=== PATIENT | female | born 1930 | race Caucasian/White ===

== ENCOUNTER 2019-03-27 15:24 | Inpatient (IN) | payer MEDICARE ==
[2019-03-27 16:52] LABS: Basophils # (A) 0.1 k/uL (0-0.2); Basophils % (A) 1 %; Eosinophils # (A) 0.2 k/uL (0-0.7); Eosinophils % (A) 2 %; HGB 15.1 gm/dL (11.4-16.0); Lymphocytes # (A) 1.5 k/uL (1.0-4.8); Lymphocytes % (A) 18 %; MCH 29.5 pg (25.0-35.0); MCHC 33.5 g/dL (31.0-37.0); Mean Platelet Volume 7.9; Monocytes # (A) 0.7 k/uL (0-1.0); Monocytes % (A) 9 %; Neutrophils # (A) 5.4 k/uL (1.3-7.7); Neutrophils % (A) 67 %; Platelet Count 191 k/uL (150-450); RBC 5.11 m/uL (3.80-5.40)
--- NOTE | 2019-03-27 16:56 | ED ---
General Adult HPI - General Chief complaint: Neuro Symptoms/Deficit Stated complaint: dizziness, speech difficulty Time Seen by Provider: 03/27/19 15:59 Source: patient Mode of arrival: ambulatory Limitations: no limitations - History of Present Illness Initial comments: Dictation was produced using [employer] dictation software. please excuse any grammatical, word or spelling errors. Chief Complaint: 88 yo female told by her field crop farmworker come to the emergency department for stroke likd symptoms. History of Present Illness: Elsie is an 88-year-old female. She has past medical history atrial fibrillation, dyslipidemia hypertension. She was at her field crop farmworker office today for ultrasound of the carotids. At approximately noon today, she began having symptoms of bilateral lower extremity numbness and difficulty using the right hand. Patient also states that she had difficulty with her speech. She is accompanied today with her son. She notified her field crop farmworker of her symptoms and was told to come to the emergency department. Dr. Vo discussed patient case with Dr. Barrera prior to the patient being transferred to the emergency department that she will need a stroke workup. Patient evaluated bedside. She does not have any symptoms currently. She states her symptoms lasted for approximately 3 hours and resolved. Patient has a history of stroke. She takes Coumadin for atrial fibrillation. She is told t hat ultrasound of her carotids were normal. She has no other complaints at this time. She feels at baseline currently. The ROS documented in this emergency department record has been reviewed and confirmed by me. Those systems with pertinent positive or negative responses have been documented in the HPI. All other systems are other negative and/or noncontributory. PHYSICAL EXAM: General Impression: Alert and oriented x3, not in acute distress HEENT: Normocephalic atraumatic, extra-ocular movements intact, pupils equal and reactive to light bilaterally, mucous membranes moist. Cardiovascular: Heart regular rate and rhythm, S1&S2 audible, no murmurs, rubs or gallops Chest: Lungs clear to auscultation bilaterally, no rhonchi, no wheeze, no rales Abdomen: Bowel sounds present, abdomen soft, non-tender, non-distended, no organomegaly Musculoskeletal: Pulses present and equal in all extremities, no peripheral edema Motor: no focal deficits noted Neurological: CN II-XII grossly intact, no focal motor or sensory deficits noted Skin: Intact with no visualized rashes Psych: Normal affect and mood ED course: 88-year-old female with transient strokelike symptoms. Symptoms lasted from approximately noon p.m. today to approximately 3:30 PM. Signs upon arrival are within acceptable limits. She reports that her symptoms were bilateral lower extremity paresthesias, dizziness and difficulty using the right hand. She is currently asymptomatic. NIH was performed upon arrival with a score of 0. CT brain was obtained showing no acute processes. Chest x-ray is negative. Laboratory evaluation obtained. Patient's INR slightly subtherapeutic at 1.8. Metabolic panel is negative. Presentation concerning for change in ischemic attack. Patient given an aspirin. Patient be admitted to Dr. Palma's group. Attempt was made to page Dr. Palma without any return call. Patient unde rstandable agreeable to plan. Neurology on consult. EKG interpretation: Ventricular rate 60, atrial paced rhythm,. Interval 200, care is 80, QTc 424. No OH prolongation, no QTC prolongation, no ST or T-wave changes noted. EKG compared to 06/15/2016 showing no changes. Overall, this EKG is unremarkable - Related Data Home Medications Medication Instructions Recorded Confirmed ALPRAZolam [Xanax] 0.25 mg PO BID PRN 03/18/15 03/27/19 Atorvastatin Calcium 10 mg PO HS 03/18/15 03/27/19 Acetaminophen [Tylenol Arthritis] 650 mg PO DAILY 03/27/19 03/27/19 Calcium Carbonate [Tums] 1,000 mg PO DAILY 03/27/19 03/27/19 Levothyroxine Sodium [Synthroid] 88 mcg PO DAILY 03/27/19 03/27/19 Loratadine [Claritin] 10 mg PO DAILY 03/27/19 03/27/19 Metoprolol Tartrate [Lopressor] 50 mg PO TID 03/27/19 03/27/19 Warfarin [Coumadin] 5 mg PO SUMOTUWETHSA 03/27/19 03/27/19 Warfarin [Coumadin] 7.5 mg PO FR 03/27/19 03/27/19 buPROPion XL [Wellbutrin Xl] 150 mg PO DAILY 03/27/19 03/27/19 Allergies Allergy/AdvReac Type Severity Reaction Status Date / Time kiwi Allergy "swollen Verified 03/27/19 16:28 lips and nausea" latex Allergy "avoids Verified 03/27/19 16:28 latex due to kiwi alg" Review of Systems ROS Statement: Those systems with pertinent positive or pertinent negative responses have been documented in the HPI. ROS Other: All systems not noted in ROS Statement are negative. Past Medical History Past Medical History: Atrial Fibrillation, Hyperlipidemia, Hypertension, Thyroid Disorder History of Any Multi-Drug Resistant Organisms: None Reported Past Surgical History: Pacemaker Additional Past Surgical History / Comment(s): 03-29-15 total rt hip , ANUPAM KNEE REPLACEMENT,ANUPAM CATARACT Past Anesthesia/Blood Transfusion Reactions: No Reported Reaction Type of Cardiac Device: Permanent Pacemaker Device Placement Date:: January 07, 2016 Past Psychological History: Anxiety, Depression Smoking Status: Former smoker Past Alcohol Use History: Occasional Past Drug Use History: None Reported - Past Family History Mother Family Medical History: No Reported History Additional Family Medical History / Comment(s): Mother at age 101. Brother(s) Additional Family Medical History / Comment(s): Liver CA Father Family Medical History: Osteoarthritis (OA) General Exam Limitations: no limitations Course Vital Signs 03/27/19 03/27/19 03/27/19 15:40 16:00 17:01 Temperature 97.4 F L Pulse Rate 60 89 70 Respiratory 18 18 18 Rate Blood Pressure 165/98 160/89 145/87 O2 Sat by Pulse 94 L 96 95 Oximetry 03/27/19 19:28 Temperature 98.4 F Pulse Rate 60 Respiratory 20 Rate Blood Pressure 169/96 O2 Sat by Pulse 94 L Oximetry Medical Decision Making - Lab Data Result diagrams: 03/27/19 16:02 03/27/19 16:02 Lab Results 03/27/19 03/27/19 03/27/19 Range/Units 16:02 16:02 16:02 WBC 8.0 (3.8-10.6) k/uL RBC 5.11 (3.80-5.40) m/uL Hgb 15.1 (11.4-16.0) gm/dL Hct 45.0 (34.0-46.0) % MCV 88.0 (80.0-100.0) fL MCH 29.5 (25.0-35.0) pg MCHC 33.5 (31.0-37.0) g/dL RDW 14.0 (11.5-15.5) % Plt Count 191 (150-450) k/uL Neutrophils % 67 % Lymphocytes % 18 % Monocytes % 9 % Eosinophils % 2 % Basophils % 1 % Neutrophils # 5.4 (1.3-7.7) k/uL Lymphocytes # 1.5 (1.0-4.8) k/uL Monocytes # 0.7 (0-1.0) k/uL Eosinophils # 0.2 (0-0.7) k/uL Basophils # 0.1 (0-0.2) k/uL PT 17.5 H (9.0-12.0) sec INR 1.8 H (<1.2) APTT 32.0 H (22.0-30.0) sec Sodium 138 (137-145) mmol/L Potassium 4.3 (3.5-5.1) mmol/L Chloride 102 (98-107) mmol/L Carbon Dioxide 26 (22-30) mmol/L Anion Gap 10 mmol/L BUN 17 (7-17) mg/dL Creatinine 0.82 (0.52-1.04) mg/dL Est GFR (CKD-EPI)AfAm 73 (>60 ml/min/1.73 sqM) Est GFR (CKD-EPI)NonAf 64 (>60 ml/min/1.73 sqM) Glucose 90 (74-99) mg/dL Calcium 9.8 (8.4-10.2) mg/dL Magnesium 2.0 (1.6-2.3) mg/dL Total Bilirubin 0.7 (0.2-1.3) mg/dL AST 39 H (14-36) U/L ALT 31 (9-52) U/L Alkaline Phosphatase 78 (38-126) U/L Troponin I (0.000-0.034) ng/mL Total Protein 8.0 (6.3-8.2) g/dL Albumin 4.7 (3.5-5.0) g/dL 03/27/19 Range/Units 16:02 WBC (3.8-10.6) k/uL RBC (3.80-5.40) m/uL Hgb (11.4-16.0) gm/dL Hct (34.0-46.0) % MCV (80.0-100.0) fL MCH (25.0-35.0) pg MCHC (31.0-37.0) g/dL RDW (11.5-15.5) % Plt Count (150-450) k/uL Neutrophils % % Lymphocytes % % Monocytes % % Eosinophils % % Basophils % % Neutrophils # (1.3-7.7) k/uL Lymphocytes # (1.0-4.8) k/uL Monocytes # (0-1.0) k/uL Eosinophils # (0-0.7) k/uL Basophils # (0-0.2) k/uL PT (9.0-12.0) sec INR (<1.2) APTT (22.0-30.0) sec Sodium (137-145) mmol/L Potassium (3.5-5.1) mmol/L Chloride (98-107) mmol/L Carbon Dioxide (22-30) mmol/L Anion Gap mmol/L BUN (7-17) mg/dL Creatinine (0.52-1.04) mg/dL Est GFR (CKD-EPI)AfAm (>60 ml/min/1.73 sqM) Est GFR (CKD-EPI)NonAf (>60 ml/min/1.73 sqM) Glucose (74-99) mg/dL Calcium (8.4-10.2) mg/dL Magnesium (1.6-2.3) mg/dL Total Bilirubin (0.2-1.3) mg/dL AST (14-36) U/L ALT (9-52) U/L Alkaline Phosphatase (38-126) U/L Troponin I <0.012 (0.000-0.034) ng/mL Total Protein (6.3-8.2) g/dL Albumin (3.5-5.0) g/dL Disposition Clinical Impression: TIA (transient ischemic attack) Disposition: ADMITTED IP TO THIS HOSP Condition: Fair Referrals: Raul Avendaño MD [Primary Care Provider] - 1-2 days Decision Time: 20:43
[2019-03-27 16:57] LABS: INR 1.8 (<1.2); Prothrombin Time 17.5 sec (9.0-12.0)
[2019-03-27 16:59] LABS: Albumin 4.7 g/dL (3.5-5.0); Calcium 9.8 mg/dL (8.4-10.2); Potassium 4.3 mmol/L (3.5-5.1); Total Bilirubin 0.7 mg/dL (0.2-1.3)
--- NOTE | 2019-03-27 17:02 | CT ---
EXAMINATION TYPE: CT brain wo con DATE OF EXAM: 03/27/2019 COMPARISON: 06/14/2016 HISTORY: AMS CT DLP: 1135.4 mGycm Automated exposure control for dose reduction was used. FINDINGS: There is cerebral cortical atrophy. There is no mass effect nor midline shift. There is no sign of in tracranial hemorrhage. The calvarium is intact. IMPRESSION: CEREBRAL ATROPHY. NO ACUTE INTRACRANIAL ABNORMALITY. THERE IS CLEARING OF LEFT MAXILLARY SINUSITIS CO MPARED TO OLD EXAM..
--- NOTE | 2019-03-27 17:58 | XR ---
EXAMINATION TYPE: XR chest 1V portable DATE OF EXAM: 03/27/2019 COMPARISON: 06/14/2016 HISTORY: Dizziness TECHNIQUE: Single frontal view of the chest is obtained. FINDINGS: There is no heart failure nor confluent pneumonic infiltrate. There is a left axillary pac emaker. There are chest leads. There is minimal atelectasis at the lateral lung bases. IMPRESSION: Minimal subsegmental atelectasis at the lung bases similar to old exam. No heart failure . Normal heart.
[2019-03-27] MEDS ORDERED: ASPIRIN 81 MG PO STA (18:50)
[2019-03-27] MEDS ORDERED: NALOXONE 0.4 MG/ML 1 ML VIAL IV PRN (20:36)
[2019-03-27] MEDS: SODIUM CHLORIDE 0.9% 1,000 ML IV SCH (23:26)
[2019-03-27 23:39] LABS: Appearance,Urine Clear (Clear); Bacteria,Urine Rare /hpf; Bilirubin,Urine Negative (Negative); Blood,Urine Small (Negative); Color,Urine Light Yellow; Glucose,Urine (UA) Negative (Negative); Ketones,Urine Negative (Negative); Leukocyte Esterase,Urine Small (Negative); Mucus,Urine Rare /hpf; Nitrite,Urine Negative (Negative); PH, Urine 6.5 (5.0-8.0); Protein,Urine Negative (Negative); RBC,Urine 6 /hpf (0-5); Specific Gravity,Urine 1.009 (1.001-1.035); Squamous Epithelial Cell,Urine 1 /hpf (0-4); Urobilinogen,Urine <2.0 mg/dL (<2.0)
[2019-03-28] MEDS: PANTOPRAZOLE 40 MG TABLET PO SCH (07:14)
[2019-03-28] MEDS: ACETAMINOPHEN TAB 325 MG TAB PO SCH (09:52)
[2019-03-28] MEDS: CALCIUM CARBONATE 500 MG CHEWABLE PO SCH (09:52)
[2019-03-28] MEDS: LORATADINE 10 MG TAB PO SCH (09:53)
[2019-03-28] MEDS: METOPROLOL TARTRATE 50 MG TAB PO SCH ×3 (09:53→20:57)
[2019-03-28] MEDS: buPROPion XL 150 MG TAB.ER.24H PO SCH (09:53)
[2019-03-28] MEDS: LEVOTHYROXINE 88 MCG TAB PO SCH (09:56)
[2019-03-28] MEDS: ALPRAZolam 0.25 MG TAB PO PRN (09:58)
--- NOTE | 2019-03-28 11:53 | P.CNNES ---
History of Present Illness Consult date: 03/28/19 Requesting physician: Javier Garcia Reason for Consult: CVA Chief complaint: Right hand clumsiness and BLE weakness History of Present Illness: This is an 88 RH female h/o afib on warfarin admission INR 1.8 other vascular risk factors include age, HTN and HL. She had an episode of right hand c lumsiness, speech difficulty and BLE weakness. She told her assistant executive housekeeper who incidentally did a carotid duplex as outpatient and was reportedly normal. She was instructed to come to the ER a stroke evaluation. Her symptoms lasted for around 3 hours and completely resolved, and patient remains neurologically asymptomatic. Denies other new neuro c/o. States that she was taking her warfarin everyday as prescribed. Review of Systems 14-point ROS performed and as per HPI. Neurologically, patient denies decreased level or loss of consciousness, headache, seizure, changes in vision, diplopia, amaurosis, changes in hearing, facial droop, ptosis, vertigo, hearing loss, tin nitus, dysphagia, aphasia, other focal numbness/weakness not mentioned above, tremors, bowel/bladder incontinence or ataxia. Past Medical History Past Medical History: Atrial Fibrillation, Hyperlipidemia, Hypertension, Thyroid Disorder History of Any Multi-Drug Resistant Organisms: None Reported Past Surgical History: Pacemaker Additional Past Surgical History / Comment(s): 03-29-15 total rt hip , ANUPAM KNEE REPLACEMENT,ANUPAM CATARACT Past Anesthesia/Blood Transfusion Reactions: No Reported Reaction Type of Cardiac Device: Permanent Pacemaker Device Placement Date:: January 07, 2016 Past Psychological History: Anxiety, Depression Smoking Status: Former smoker Past Alcohol Use History: Occasional Past Drug Use History: None Reported - Past Family History Mother Family Medical History: No Reported History Additional Family Medical History / Comment(s): Mother at age 101. Brother(s) Additional Family Medical History / Comment(s): Liver CA Father Family Medical History: Osteoarthritis (OA) Medications and Allergies Home Medications Medication Instructions Recorded Confirmed Type ALPRAZolam [Xanax] 0.25 mg PO BID PRN 03/18/15 03/27/19 History Atorvastatin Calcium 10 mg PO HS 03/18/15 03/27/19 History Acetaminophen [Tylenol Arthritis] 650 mg PO DAILY 03/27/19 03/27/19 History Calcium Carbonate [Tums] 1,000 mg PO DAILY 03/27/19 03/27/19 History Levothyroxine Sodium [Synthroid] 88 mcg PO DAILY 03/27/19 03/27/19 History Loratadine [Claritin] 10 mg PO DAILY 03/27/19 03/27/19 History Metoprolol Tartrate [Lopressor] 50 mg PO TID 03/27/19 03/27/19 History Warfarin [Coumadin] 5 mg PO SUMOTUWETHSA 03/27/19 03/27/19 History Warfarin [Coumadin] 7.5 mg PO FR 03/27/19 03/27/19 History buPROPion XL [Wellbutrin Xl] 150 mg PO DAILY 03/27/19 03/27/19 History Allergies Allergy/AdvReac Type Severity Reaction Status Date / Time kiwi Allergy "swollen Verified 03/27/19 16:28 lips and nausea" latex Allergy "avoids Verified 03/27/19 16:28 latex due to kiwi alg" Physical Examination - Vital Signs Vital Signs: Vital Signs Temp Pulse Pulse Resp BP BP Pulse Ox 03/28/19 09:06 95 03/28/19 08:00 98 F 68 18 167/80 95 03/28/19 05:45 98.1 F 61 16 130/68 97 03/28/19 00:00 62 16 102/59 94 L 03/27/19 22:15 97.8 F 60 16 164/78 95 03/27/19 21:57 63 18 113/76 95 03/27/19 19:28 98.4 F 60 20 169/96 94 L 03/27/19 17:01 70 18 145/87 95 03/27/19 16:00 89 18 160/89 96 03/27/19 15:40 97.4 F L 60 18 165/98 94 L Intake and Output 03/27/19 03/28/19 03/28/19 22:59 06:59 14:59 Output Total 300 Balance -300 Output: Urine 300 Other: Voiding Method Toilet # Voids 1 Weight 68.946 kg 67.3 kg Gen NAD Pleasant and cooperative HEENT NCAT Sclera without icterus O/P clear Neck Supple No carotid bruit Cor RRR no m/r/g Lungs CTAB Abd Soft NTND +BS Ext Warm to touch No edema Neuro MS A+Ox4 Normal fluency Able to follow all commands CN PERRL VFF no APD EOMI no nystagmus or LIAM No facial asymmetry Masseter's symmetric Hearing intact to normal voice bilaterally Speech not dysarthric Equal elevation of palate Tongue midline Sym shrug and SCM bilaterally Motor Normal bulk/tone No pronator or leg drift No tremors Strength 5/5 sym throughout Sens Intact to LT x4 No neglect or extinction Coord No dysmetria on FTN bilaterally DTRs 2+/4 sym throughout Toes downgoing bilaterally No clonus at achilles Gait Deferred NIHSS 0 Results - Laboratory Findings CBC and BMP: 03/27/19 16:02 03/27/19 16:02 Abnormal Lab Findings: Abnormal Labs 03/27/19 03/27/19 03/27/19 16:02 16:02 23:28 PT 17.5 H INR 1.8 H APTT 32.0 H AST 39 H Urine Blood Small H Ur Leukocyte Esterase Small H Urine RBC 6 H Urine WBC Clumps Rare H Urine Bacteria Rare H Urine Mucus Rare H - Diagnostic Findings Additional findings: CT Head wo cont 03/28/19. Global atrophy. No ICH. Nil acute. I have reviewed neuroimages myself. Assessment and Plan Assessment: TIA in the setting of afib with subtherapeutic INR on warfarin with concerns for cardioembolic phenomenon, currently neurologically asymptomatic Plan: -Cannot obtain MRI due to pacemaker -Will not repeat carotid duplex as she just had one yesterday that was reportedly normal -TTE -Fasting lipids in am goal LDL <70. On atorvastatin 10mg po qhs -Would recommend heparin gtt if INR continues to be <2.0 and following INR until >=2.0 on warfarin -Warfarin management per primary team and/or cardiology -PT/OT/SP per protocol -Stroke education given -DVT prophylaxis -d/w patient in detail. All questions answered -Neurology will be available again on 03/31/19. Thank you for this consultation. Please call with ?. Time with Patient: Greater than 30 (Time spent in direct patient care, greater than 50% of which was spent in [id number] counseling and coordination of care: 70 minutes)
[2019-03-28 12:04] LABS: INR 1.5 (<1.2); Prothrombin Time 15.3 sec (9.0-12.0)
[2019-03-28] MEDS ORDERED: HEPARIN SODIUM,PORCINE 5,000 UNIT/ML 1 ML VIAL IV PRN (12:54)
[2019-03-28] MEDS ORDERED: HEPARIN SODIUM,PORCINE 5,000 UNIT/ML 1 ML VIAL IV ONE (12:54)
[2019-03-28 13:17] LABS: Basophils # (A) 0.1 k/uL (0-0.2); Basophils % (A) 1 %; Eosinophils # (A) 0.2 k/uL (0-0.7); Eosinophils % (A) 3 %; HCT 41.9 % (34.0-46.0); Lymphocytes # (A) 1.2 k/uL (1.0-4.8); Lymphocytes % (A) 17 %; MCH 29.7 pg (25.0-35.0); MCHC 33.4 g/dL (31.0-37.0); MCV 88.9 fL (80.0-100.0); Mean Platelet Volume 8.3; Monocytes # (A) 0.7 k/uL (0-1.0); Monocytes % (A) 9 %; Neutrophils % (A) 68 %; Platelet Count 171 k/uL (150-450); RBC 4.71 m/uL (3.80-5.40); RDW 15.8 % (11.5-15.5); WBC 7.4 k/uL (3.8-10.6)
[2019-03-28] MEDS: HEPARIN SOD,PORK IN 0.45% NACL 25,000 UNIT in 0.45% NACL 1 250ML.BAG IV SCH (14:05)
--- NOTE | 2019-03-28 16:20 | P.HPIM ---
History of Present Illness H&P Date: 03/28/19 Chief Complaint: Right hand clumsiness and BLE weakness 88 yo female h/o afib on warfarin admission INR 1.8 other vascular risk factors include age, HTN and HL. She had an episode of right hand clumsiness, speech difficulty and BLE weakness. She told her double cut sawyer who incidentally did a carotid duplex as outpatient and was reportedly normal. She was instructed to come to the ER a stroke evaluation. Her symptoms lasted for around 3 hours and completely resolved, and patient remains neurologically asymptomatic. Denies other new neuro c/o. States that she was taking her warfarin everyday as prescribed. NIH was performed upon arrival with a score of 0. CT brain was obtained showing no acute processes. Chest x-ray is negative. Laboratory evaluation obtained. Patient's INR slightly subtherapeutic at 1.8. Metabolic panel is negative. Presentation concerning for change in ischemic attack. Patient given an aspirin. Review of Systems Constitutional: Denies chills, Denies fever Eyes: denies blurred vision, denies loss of vision Ears, nose, mouth and throat: Denies epistaxis, Denies nasal congestion Cardiovascular: Denies chest pain, Denies dyspnea on exertion Genitourinary: Denies dysuria, Denies hematuria Musculoskeletal: Denies frequent falls, Denies gait dysfunction Integumentary: Denies color changes, Denies darkening of skin Neurological: Reports lack of coordination, Denies ataxia, Denies confusion, Denies syncope Psychiatric: Denies anxiety, Denies confusion Endocrine: Denies cold intolerance, Denies heat intolerance Hematologic/Lymphatic: Denies easy bruising Past Medical History Past Medical History: Atrial Fibrillation, Hyperlipidemia, Hypertension, Thyroid Disorder History of Any Multi-Drug Resistant Organisms: None Reported Past Surgical History: Pacemaker Additional Past Surgical History / Comment(s): 03-29-15 total rt hip , ANUPAM KNEE REPLACEMENT,ANUPAM CATARACT Past Anesthesia/Blood Transfusion Reactions: No Reported Reaction Type of Cardiac Device: Permanent Pacemaker Device Placement Date:: January 07, 2016 Past Psychological History: Anxiety, Depression Smoking Status: Former smoker Past Alcohol Use History: Occasional Past Drug Use History: None Reported - Past Family History Mother Family Medical History: No Reported History Additional Family Medical History / Comment(s): Mother at age 101. Brother(s) Additional Family Medical History / Comment(s): Liver CA Father Family Medical History: Osteoarthritis (OA) Medications and Allergies Home Medications Medication Instructions Recorded Confirmed Type ALPRAZolam [Xanax] 0.25 mg PO BID PRN 03/18/15 03/27/19 History Atorvastatin Calcium 10 mg PO HS 03/18/15 03/27/19 History Acetaminophen [Tylenol Arthritis] 650 mg PO DAILY 03/27/19 03/27/19 History Calcium Carbonate [Tums] 1,000 mg PO DAILY 03/27/19 03/27/19 History Levothyroxine Sodium [Synthroid] 88 mcg PO DAILY 03/27/19 03/27/19 History Loratadine [Claritin] 10 mg PO DAILY 03/27/19 03/27/19 History Metoprolol Tartrate [Lopressor] 50 mg PO TID 03/27/19 03/27/19 History Warfarin [Coumadin] 5 mg PO SUMOTUWETHSA 03/27/19 03/27/19 History Warfarin [Coumadin] 7.5 mg PO FR 03/27/19 03/27/19 History buPROPion XL [Wellbutrin Xl] 150 mg PO DAILY 03/27/19 03/27/19 History Allergies Allergy/AdvReac Type Severity Reaction Status Date / Time kiwi Allergy "swollen Verified 03/27/19 16:28 lips and nausea" latex Allergy "avoids Verified 03/27/19 16:28 latex due to kiwi alg" Physical Exam Vitals: Vital Signs Temp Pulse Pulse Resp BP BP Pulse Ox 03/28/19 09:06 95 03/28/19 08:00 98 F 68 18 167/80 95 03/28/19 05:45 98.1 F 61 16 130/68 97 03/28/19 00:00 62 16 102/59 94 L 03/27/19 22:15 97.8 F 60 16 164/78 95 03/27/19 21:57 63 18 113/76 95 03/27/19 19:28 98.4 F 60 20 169/96 94 L 03/27/19 17:01 70 18 145/87 95 03/27/19 16:00 89 18 160/89 96 03/27/19 15:40 97.4 F L 60 18 165/98 94 L Intake and Output 03/27/19 03/28/19 03/28/19 22:59 06:59 14:59 Output Total 300 Balance -300 Output: Urine 300 Other: Voiding Method Toilet # Voids 1 Weight 68.946 kg 67.3 kg General Impression: Alert and oriented x3, not in acute distress HEENT: Normocephalic atraumatic, extra-ocular movements intact, pupils equal and reactive to light bilaterally, mucous membranes moist. Cardiovascular: Heart regular rate and rhythm, S1&S2 audible, no murmurs, rubs or gallops Chest: Lungs clear to auscultation bilaterally, no rhonchi, no wheeze, no rales Abdomen: Bowel sounds present, abdomen soft, non-tender, non-distended, no organomegaly Musculoskeletal: Pulses present and equal in all extremities, no peripheral edema Motor: no focal deficits noted Neurological: CN II-XII grossly intact, no focal motor or sensory deficits noted Skin: Intact with no visualized rashes Psych: Normal affect and mood Results CBC & Chem 7: 03/28/19 11:47 03/27/19 16:02 Labs: Abnormal Lab Results - Last 24 Hours (Table) 03/27/19 03/27/19 03/27/19 Range/Units 16:02 16:02 23:28 PT 17.5 H (9.0-12.0) sec INR 1.8 H (<1.2) APTT 32.0 H (22.0-30.0) sec AST 39 H (14-36) U/L Urine Blood Small H (Negative) Ur Leukocyte Esterase Small H (Negative) Urine RBC 6 H (0-5) /hpf Urine WBC Clumps Rare H (None) /hpf Urine Bacteria Rare H (None) /hpf Urine Mucus Rare H (None) /hpf Thrombosis Risk Factor Assmnt - Choose All That Apply Any of the Below Risk Factors Present?: No Each Risk Factor Represents 3 Points: Age 75 years or older Other congenital or acquired thrombophilia - If yes, enter type in comment: No Thrombosis Risk Factor Assessment Total Risk Factor Score: 3 Thrombosis Risk Factor Assessment Level: Moderate Risk Assessment and Plan Assessment: 1. TIA - Neurology is following; MRI cannot be obtained due to pacemaker; patient had carotid duplex done yesterday which was unremarkable; patient will have a transthoracic echo and started on statin therapy with atorvastatin 10 mg by mouth daily at bedtime; patient is recommended to be started on IV heparin until INR is therapeutic; we will consult pharmacy for dosing heparin and Coumadin; DC Coumadin once INR is greater than 2.0; PT/OT was consulted 2. Atrial fibrillation with subtherapeutic INR; rate controlled on metoprolol tartrate 50 mg by mouth 3 times a day; we will continue home dose of Coumadin with 5 mg daily except for Fridays; 7.5 mg every Sunday; pharmacy is consulted to dose Coumadin; continue with IV heparin until INR is therapeutic 3. Hypertension; stable on home dose of metoprolol 4. Hypothyroidism; continue with levothyroxine 88 MCG daily 5. DVT prophylaxis; systemic anticoagulation CODE STATUS; full code Time with Patient: Greater than 30
[2019-03-28] MEDS ORDERED: WARFARIN 7.5 MG TAB PO SCH (18:00)
--- NOTE | 2019-03-28 18:03 | ECHOF ---
Referral Reason:TIA MEASUREMENTS -------- HEIGHT: 167.6 cm WEIGHT: 67.1 kg BP: 167/80 RVIDd: 2.3 cm (< 3.3) IVSd: 1.1 cm (0.6 - 1.1) LVIDd: 3.7 cm (3.9 - 5.3) LVPWd: 1.5 cm (0.6 - 1.1) IVSs: 1.7 cm LVIDs: 2.8 cm LVPWs: 1.9 cm LAESV Index (A-L): 37.89 ml/m Ao Diam: 2.7 cm (2.0 - 3.7) AV Cusp: 1.8 cm (1.5 - 2.6) LA Diam: 2.5 cm (2.7 - 3.8) MV E [place]: 0.82 m/s MV DecT: 313 ms MV A [place]: 0.75 m/s MV E/A Ratio: 1.10 AR PHT: 483 ms RAP: 5.00 mmHg RVSP: 45.94 mmHg FINDINGS -------- Sinus rhythm. This was a technically adequate study. The left ventricular size is normal. There is mild concentric left ventricular hypertrophy. Overa ll left ventricular systolic function is normal with, an EF between 55 - 60 %. Pseudonormal LV fill ing pattern, consistent with elevated LA pressure. The right ventricle is normal in size. Left atrium is moderately dilated by volume. The right atrial size is normal. Electronic pacemaker lead seen in the right atrial cavity. Interatrial and interventricular septum intact. Aortic valve is trileaflet and is mildly thickened. There is mild aortic regurgitation. There is no evidence of aortic stenosis. Mild mitral annular calcification present. Mild mitral regurgitation is present. Hkbs-zr-[id number] tricuspid regurgitation present. There is moderate pulmonary hypertension. The r ight ventricular systolic pressure, as measured by Doppler, is 45.94mmHg. Trace/mild (physiologic) pulmonic regurgitation. The aortic root size is normal. The inferior vena cava is mildly dilated. There is no pericardial effusion. CONCLUSIONS -------- 1. Sinus rhythm. 2. This was a technically adequate study. 3. The left ventricular size is normal. 4. There is mild concentric left ventricular hypertrophy. 5. Overall left ventricular systolic function is normal with, an EF between 55 - 60 %. 6. Pseudonormal LV filling pattern, consistent with elevate LA pressure. 7. Left atrium is moderately dilated by volume. 8. Electronic pacemaker lead seen in the right atrial cavity. 9. Interatrial and interventricular septum intact. 10. Aortic valve is trileaflet and is mildly thickened. 11. There is mild aortic regurgitation. 12. There is no evidence of aortic stenosis. 13. Mild mitral annular calcification present. 14. Mild mitral regurgitation is present. 15. Idez-ns-jrevuiwd tricuspid regurgitation present. 16. There is moderate pulmonary hypertension. 17. The right ventricular systolic pressure, as measured by Doppler, is 45.94mmHg. 18. Trace/mild (physiologic) pulmonic regurgitation. 19. The aortic root size is normal. 20. The inferior vena cava is mildly dilated. 21. There is no pericardial effusion. [employer]ER [employer]IPPER HAND: Tierney Machuca RDCS
[2019-03-28] MEDS: ATORVASTATIN 10 MG TAB PO SCH (20:57)
[2019-03-28] MEDS ORDERED: ATORVASTATIN 10 MG TAB PO SCH (21:00)
[2019-03-29] MEDS: LEVOTHYROXINE 88 MCG TAB PO SCH (06:45)
[2019-03-29] MEDS: PANTOPRAZOLE 40 MG TABLET PO SCH (06:45)
[2019-03-29 06:47] LABS: Basophils # (A) 0.1 k/uL (0-0.2); Basophils % (A) 1 %; Eosinophils # (A) 0.2 k/uL (0-0.7); Eosinophils % (A) 3 %; HCT 44.5 % (34.0-46.0); HGB 14.8 gm/dL (11.4-16.0); Lymphocytes # (A) 1.4 k/uL (1.0-4.8); Lymphocytes % (A) 23 %; MCH 29.6 pg (25.0-35.0); MCHC 33.1 g/dL (31.0-37.0); MCV 89.2 fL (80.0-100.0); Mean Platelet Volume 7.6; Monocytes # (A) 0.5 k/uL (0-1.0); Monocytes % (A) 9 %; Neutrophils # (A) 3.8 k/uL (1.3-7.7); Neutrophils % (A) 63 %; Platelet Count 172 k/uL (150-450); RBC 4.99 m/uL (3.80-5.40); RDW 14.1 % (11.5-15.5); WBC 6.1 k/uL (3.8-10.6)
[2019-03-29 07:02] LABS: INR 1.4 (<1.2); Prothrombin Time 14.6 sec (9.0-12.0)
[2019-03-29 07:28] LABS: Calcium 9.2 mg/dL (8.4-10.2); Potassium 4.4 mmol/L (3.5-5.1)
[2019-03-29] MEDS: ACETAMINOPHEN TAB 325 MG TAB PO SCH (08:18)
[2019-03-29] MEDS: CALCIUM CARBONATE 500 MG CHEWABLE PO SCH (08:18)
[2019-03-29] MEDS: buPROPion XL 150 MG TAB.ER.24H PO SCH (08:19)
[2019-03-29] MEDS: METOPROLOL TARTRATE 50 MG TAB PO SCH ×3 (08:19→21:59)
[2019-03-29] MEDS: LORATADINE 10 MG TAB PO SCH (08:19)
[2019-03-29] MEDS: SODIUM CHLORIDE 0.9% 1,000 ML IV SCH ×2 (08:20→22:01)
[2019-03-29] MEDS: ALPRAZolam 0.25 MG TAB PO PRN (08:22)
--- NOTE | 2019-03-29 12:26 | P.PN ---
Subjective Progress Note Date: 03/29/19 Principal diagnosis: TIA Atrial fibrillation with subtherapeutic INR Objective - Vital Signs Vital signs: Vital Signs Temp 97.5 F L 03/29/19 04:30 Pulse 69 03/29/19 04:30 Resp 12 03/29/19 04:30 BP 116/74 03/29/19 04:30 Pulse Ox 95 03/29/19 04:30 Intake & Output 03/28/19 03/29/19 03/29/19 18:59 06:59 18:59 Intake Total 480 63.262 67.3 Output Total 300 Balance 180 63.262 67.3 Weight 67.2 kg Intake: Intake, IV Titration 63.262 67.3 Amount Heparin Sod,Pork in 0.45% 63.262 67.3 NaCl 25,000 unit In 0.45 % NaCl 1 250ml.bag @ 12 UNITS/KG/HR 8.076 mls/hr IV .Q24H RANDI Rx#: [id number] Oral 480 Output: Urine 300 Other: Voiding Method Toilet # Voids 1 - Exam - Constitutional General appearance: Present: average body habitus, cooperative, no acute distress - EENT Eyes: Present: anicteric sclerae, EOMI, PERRLA, normal appearance ENT: Present: hearing grossly normal, normal oropharynx Ears: bilateral: normal - Neck Neck: Present: normal ROM. Absent: lymphadenopathy, rigidity, thyromegaly Carotids: negative: bruit present Thyroid: bilateral: normal size, negative: enlarged, nodule - Respiratory Respiratory: bilateral: CTA, negative: rales, rhonchi, wheezing - Cardiovascular Rhythm: regular Heart sounds: normal: S1, S2 Abnormal Heart Sounds: Absent: systolic murmur, diastolic murmur - Gastrointestinal General gastrointestinal: Present: normal bowel sounds, soft. Absent: distended, organomegaly, tenderness - Genitourinary Genitourinary Comment(s): deferred - Integumentary Integumentary: Present: normal turgor. Absent: jaundiced, rash, ulcer - Neurologic Neurologic: Present: CNII-XII intact. Absent: focal deficits - Musculoskeletal Musculoskeletal: Present: gait normal, strength equal bilaterally - Psychiatric Psychiatric: Present: A&O x's 3, appropriate affect, intact judgment & insight - Labs CBC & Chem 7: 03/29/19 06:24 03/29/19 06:24 Labs: Abnormal Lab Results - Last 24 Hours (Table) 03/28/19 03/28/19 03/28/19 Range/Units 11:40 11:47 20:45 RDW 15.8 H (11.5-15.5) % PT 15.3 H (9.0-12.0) sec INR 1.5 H (<1.2) APTT 93.3 H (22.0-30.0) sec BUN (7-17) mg/dL HDL Cholesterol (40-60) mg/dL 03/29/19 03/29/19 03/29/19 Range/Units 06:24 06:24 06:24 RDW (11.5-15.5) % PT 14.6 H (9.0-12.0) sec INR 1.4 H (<1.2) APTT 51.3 H (22.0-30.0) sec BUN 18 H (7-17) mg/dL HDL Cholesterol 62 H (40-60) mg/dL Assessment and Plan Assessment: 1. TIA - Neurology is following; MRI cannot be obtained due to pacemaker; patient had carotid duplex done yesterday which was unremarkable; patient will have a transthoracic echo and started on statin therapy with atorvastatin 10 mg by mouth daily at bedtime; patient is recommended to be started on IV heparin until INR is therapeutic; we will consult pharmacy for dosing heparin and Coumadin; DC Coumadin once INR is greater than 2.0; PT/OT was consulted 2. Atrial fibrillation with subtherapeutic INR; rate controlled on metoprolol tartrate 50 mg by mouth 3 times a day; we will continue home dose of Coumadin with 5 mg daily except for Fridays; 7.5 mg every Sunday; pharmacy is consulted to dose Coumadin; continue with IV heparin until INR is therapeutic 3. Hypertension; stable on home dose of metoprolol 4. Hypothyroidism; continue with levothyroxine 88 MCG daily 5. DVT prophylaxis; systemic anticoagulation CODE STATUS; full code Time with Patient: Greater than 30
[2019-03-29] MEDS: HEPARIN SOD,PORK IN 0.45% NACL 25,000 UNIT in 0.45% NACL 1 250ML.BAG IV SCH (17:34)
[2019-03-29] MEDS ORDERED: WARFARIN 5 MG TAB PO SCH (18:00)
[2019-03-29] MEDS ORDERED: WARFARIN 7.5 MG TAB PO ONE (18:00)
[2019-03-29] MEDS: ATORVASTATIN 10 MG TAB PO SCH (21:59)
[2019-03-30 06:15] LABS: INR 1.7 (<1.2); Prothrombin Time 16.5 sec (9.0-12.0)
[2019-03-30] MEDS: LEVOTHYROXINE 88 MCG TAB PO SCH (06:15)
[2019-03-30] MEDS: PANTOPRAZOLE 40 MG TABLET PO SCH (06:15)
[2019-03-30 06:16] LABS: Partial Thromboplastin Time 68.5 sec (22.0-30.0)
[2019-03-30] MEDS: CALCIUM CARBONATE 500 MG CHEWABLE PO SCH (08:35)
[2019-03-30] MEDS: buPROPion XL 150 MG TAB.ER.24H PO SCH (08:35)
[2019-03-30] MEDS: LORATADINE 10 MG TAB PO SCH (08:35)
[2019-03-30] MEDS: ALPRAZolam 0.25 MG TAB PO PRN (08:35)
[2019-03-30] MEDS: METOPROLOL TARTRATE 50 MG TAB PO SCH ×3 (08:35→21:01)
[2019-03-30] MEDS: ACETAMINOPHEN TAB 325 MG TAB PO SCH (08:35)
--- NOTE | 2019-03-30 11:03 | P.PN ---
Subjective Progress Note Date: 03/30/19 Principal diagnosis: TIA Atrial fibrillation with subtherapeutic INR 88 yo female h/o afib on warfarin admission INR 1.8 other vascular risk factors include age, HTN and HL. She had an episode of right hand clumsiness, speech difficulty and BLE weakness. She told her content development manager who incidentally did a carotid duplex as outpatient and was reportedly normal. She was instructed to come to the ER a stroke evaluation. Her symptoms lasted for around 3 hours and completely resolved, and patient remains neurologically asymptomatic. Denies other new neuro c/o. States that she was taking her warfarin everyday as prescribed. NIH was performed upon arrival with a score of 0. CT brain was obtained showing no acute processes. Chest x-ray is negative. Laboratory evaluation obtained. Patient's INR slightly subtherapeutic at 1.8. Metabolic panel is negative. Presentation concerning for change in ischemic attack. Patient given an aspirin. 03/30/2019; Patient is seen and evaluated in room at bedside; patient is resting comfortably in bed and denies any specific complaints Vital signs remained stable with a temperature of 97.5, pulse 61, respiration 16 and blood pressure of 126/59 with SpO2 of 95% on room air Lab review shows a PT of 16.5 with INR of 1.7 Patient remains on IV heparin till INR is therapeutic; pharmacy is consulted for Coumadin dosing; INR has trended up from 1.4 yesterday to 1.7 this morning; We will continue with IV heparin infusion once Coumadin levels are therapeutic Urology has seen patient and recommending to continue atorvastatin with the goal LDL of less than 70, continuing heparin infusion to INR is greater than 2.0; outpatient follow-up with neurology once patient is stable to be discharged Objective - Vital Signs Vital signs: Vital Signs Temp 97.5 F L 03/30/19 04:00 Pulse 61 03/30/19 04:00 Resp 16 03/30/19 04:00 BP 126/59 03/30/19 04:00 Pulse Ox 95 03/30/19 04:00 Intake & Output 03/29/19 03/30/19 03/30/19 18:59 06:59 18:59 Intake Total 354.995 80 86.6 Balance 354.995 80 86.6 Intake: Intake, IV Titration 124.995 80 86.6 Amount Heparin Sod,Pork in 0.45% 124.995 86.6 NaCl 25,000 unit In 0.45 % NaCl 1 250ml.bag @ 12 UNITS/KG/HR 8.076 mls/hr IV .Q24H RANDI Rx#: [id number] Sodium Chloride 0.9% 1, 80 000 ml @ 20 mls/hr IV . Q24H RANDI Rx#:[id number] Oral 230 Other: Voiding Method Toilet Toilet # Voids 1 - Exam - Constitutional General appearance: Present: average body habitus, cooperative, no acute distress - EENT Eyes: Present: anicteric sclerae, EOMI, PERRLA, normal appearance ENT: Present: hearing grossly normal, normal oropharynx Ears: bilateral: normal - Neck Neck: Present: normal ROM. Absent: lymphadenopathy, rigidity, thyromegaly Carotids: negative: bruit present Thyroid: bilateral: normal size, negative: enlarged, nodule - Respiratory Respiratory: bilateral: CTA, negative: rales, rhonchi, wheezing - Cardiovascular Rhythm: regular Heart sounds: normal: S1, S2 Abnormal Heart Sounds: Absent: systolic murmur, diastolic murmur - Gastrointestinal General gastrointestinal: Present: normal bowel sounds, soft. Absent: distended, organomegaly, tenderness - Genitourinary Genitourinary Comment(s): deferred - Integumentary Integumentary: Present: normal turgor. Absent: jaundiced, rash, ulcer - Neurologic Neurologic: Present: CNII-XII intact. Absent: focal deficits - Musculoskeletal Musculoskeletal: Present: gait normal, strength equal bilaterally - Psychiatric Psychiatric: Present: A&O x's 3, appropriate affect, intact judgment & insight - Labs CBC & Chem 7: 03/29/19 06:24 03/29/19 06:24 Labs: Abnormal Lab Results - Last 24 Hours (Table) 03/30/19 Range/Units 05:29 PT 16.5 H (9.0-12.0) sec INR 1.7 H (<1.2) APTT 68.5 H (22.0-30.0) sec Assessment and Plan Assessment: 1. TIA - Neurology is following; MRI cannot be obtained due to pacemaker; patient had carotid duplex done yesterday which was unremarkable; patient will have a transthoracic echo and started on statin therapy with atorvastatin 10 mg by mouth daily at bedtime; patient is recommended to be started on IV heparin until INR is therapeutic; we will consult pharmacy for dosing heparin and Coumadin; DC Coumadin once INR is greater than 2.0; PT/OT was consulted 2. Atrial fibrillation with subtherapeutic INR; rate controlled on metoprolol tartrate 50 mg by mouth 3 times a day; we will continue home dose of Coumadin with 5 mg daily except for Fridays; 7.5 mg every Sunday; pharmacy is consulted to dose Coumadin; continue with IV heparin until INR is therapeutic 3. Hypertension; stable on home dose of metoprolol 4. Hypothyroidism; continue with levothyroxine 88 MCG daily 5. DVT prophylaxis; systemic anticoagulation CODE STATUS; full code Time with Patient: Greater than 30
[2019-03-30] MEDS: HEPARIN SOD,PORK IN 0.45% NACL 25,000 UNIT in 0.45% NACL 1 250ML.BAG IV SCH (15:49)
[2019-03-30] MEDS ORDERED: WARFARIN 5 MG TAB PO ONE (18:00)
[2019-03-30] MEDS: ATORVASTATIN 10 MG TAB PO SCH (21:01)
--- NOTE | 2019-03-30 21:16 | P.PN ---
Subjective Progress Note Date: 03/30/19 Principal diagnosis: TIA in the setting of afib with subtherapeutic INR Heparin gtt started on 03/28/19. No recurrent or new neuro c/o. Objective - Vital Signs Vital signs: Vital Signs Temp 97.4 F L 03/30/19 16:00 Pulse 64 03/30/19 16:00 Resp 18 03/30/19 16:00 BP 150/84 03/30/19 16:00 Pulse Ox 95 03/30/19 16:00 Intake & Output 03/30/19 03/30/19 03/31/19 06:59 18:59 06:59 Intake Total 80 133.5 Balance 80 133.5 Weight 67.4 kg Intake: Intake, IV Titration 80 133.5 Amount Heparin Sod,Pork in 0.45% 133.5 NaCl 25,000 unit In 0.45 % NaCl 1 250ml.bag @ 12 UNITS/KG/HR 8.076 mls/hr IV .Q24H RANDI Rx#: [id number] Sodium Chloride 0.9% 1, 80 000 ml @ 20 mls/hr IV . Q24H RANDI Rx#:[id number] Other: Voiding Method Toilet Toilet # Voids 1 2 # Bowel Movements 1 - Exam Gen NAD Pleasant and cooperative MS A+Ox4 Normal speech CN II-XII grossly intact no nystagmus Motor Normal bulk/tone No tremors Strength 5/5 sym throughout Sens Intact to LT x4 Coord No dysmetria on FTN bilaterally DTRs 2+/4 sym throughout Gait Deferred NIHSS 0 - Labs CBC & Chem 7: 03/29/19 06:24 03/29/19 06:24 Labs: Abnormal Lab Results - Last 24 Hours (Table) 03/30/19 Range/Units 05:29 PT 16.5 H (9.0-12.0) sec INR 1.7 H (<1.2) APTT 68.5 H (22.0-30.0) sec - Imaging and Cardiology TTE 03/28/19. LV size and function normal EF 55-60%. Mild concentric LVH. Moderate LAE. Mild AR, MR and cypy-mc-oqafssen TR. Moderate pulmonary hypertension. Tr FL. IVC mildly dilated. Assessment and Plan Assessment: TIA in the setting of afib with subtherapeutic INR on warfarin with concerns for cardioembolic phenomenon, neurologically asymptomatic since admission on heparin gtt Plan: -Cannot obtain MRI due to pacemaker -Will not repeat carotid duplex as she just had one yesterday that was reportedly normal -TTE results reviewed -LDL 92 goal <70. Increase atorvastatin to 20mg po qhs -Heparin gtt until INR >=2.0, at which point heparin gtt may be discontinued and patient can be discharged from acute neuro standpoint -Warfarin management per primary team and/or cardiology -PT/OT/SP per protocol -DVT prophylaxis: heparin gtt -d/w patient in detail. All questions answered -No further inpatient neuro recs at this time. We will revisit patient prn. Please call with new ?. Thank you again for this consultation. Time with Patient: Less than 30 (Time spent in direct patient care, greater than 50% of which was spent in [id number]-cpoy counseling and coordination of care: 25 minutes)
[2019-03-30] MEDS: SODIUM CHLORIDE 0.9% 1,000 ML IV SCH (23:11)
[2019-03-31] MEDS: LEVOTHYROXINE 88 MCG TAB PO SCH (06:32)
[2019-03-31] MEDS: PANTOPRAZOLE 40 MG TABLET PO SCH (06:32)
[2019-03-31 06:40] LABS: Prothrombin Time 19.5 sec (9.0-12.0)
[2019-03-31 06:52] LABS: Partial Thromboplastin Time 122.7 sec (22.0-30.0)
[2019-03-31] MEDS: CALCIUM CARBONATE 500 MG CHEWABLE PO SCH (08:57)
[2019-03-31] MEDS: LORATADINE 10 MG TAB PO SCH (08:57)
[2019-03-31] MEDS: METOPROLOL TARTRATE 50 MG TAB PO SCH ×2 (08:57→15:40)
[2019-03-31] MEDS: ACETAMINOPHEN TAB 325 MG TAB PO SCH (08:57)
[2019-03-31] MEDS: buPROPion XL 150 MG TAB.ER.24H PO SCH (08:57)
[2019-03-31] MEDS: ALPRAZolam 0.25 MG TAB PO PRN (09:17)
[2019-03-31 11:12] VITALS: TEMP 97.7
[2019-03-31 15:27] VITALS: BP 135/80; PULSE 73; RESP 16
[2019-03-31] MEDS ORDERED: WARFARIN 5 MG TAB PO ONE (18:00)
[2019-03-31] MEDS ORDERED: ATORVASTATIN 20 MG TAB PO SCH (21:00)
== END 2019-03-31 18:01 | disposition home or self-care (01) | DRG 69 ==
LOC: EC 15:24 → 3SCARD 20:36
PROVIDERS: ADMIT Hospitalist; ATTEND Hospitalist
DX: G45.9 Transient cerebral ischemic attack, unspecified (principal); E03.9 Hypothyroidism, unspecified; E78.5 Hyperlipidemia, unspecified; F32.9 Major depressive disorder, single episode, unspecified; F41.9 Anxiety disorder, unspecified; I10 Essential (primary) hypertension; I48.91 Unspecified atrial fibrillation; R79.1 Abnormal coagulation profile; Z79.01 Long term (current) use of anticoagulants; Z79.890 Hormone replacement therapy; Z79.899 Other long term (current) drug therapy; Z80.0 Family history of malignant neoplasm of digestive organs; Z87.891 Personal history of nicotine dependence; Z96.653 Presence of artificial knee joint, bilateral; Z96.641 Presence of right artificial hip joint; Z98.42 Cataract extraction status, left eye; Z98.41 Cataract extraction status, right eye; Z86.73 Personal history of transient ischemic attack (TIA), and cerebral infarction without residual deficits; Z91.040 Latex allergy status; Z82.61 Family history of arthritis; Z95.0 Presence of cardiac pacemaker
CPT/HCPCS: 36415; 70450; 71045; 80048; 80053; 80061; 81001; 82272; 83735; 84484; 85025; 85610; 85730; 93005; 93306; 94760; 99285

== ENCOUNTER 2019-05-11 14:30 | Emergency (ER) | payer MEDICARE ==
[2019-05-11 14:43] VITALS: RESP 16; TEMP 98
[2019-05-11] MEDS ORDERED: SODIUM CHLORIDE 0.9% 500 ML 500 ML IV STA (14:54)
--- NOTE | 2019-05-11 14:56 | ED ---
General Adult HPI - General Chief complaint: Dizziness Stated complaint: Altered mental status Time Seen by Provider: 05/11/19 14:35 Source: EMS, RN notes reviewed Mode of arrival: EMS Limitations: no limitations - History of Present Illness Initial comments: This is an 88-year-old female presents emergency department stating that she has a history of anxiety A. fib and TIAs. Patient states he was eating today when all of a sudden she felt her mouth getting kind of tingly and then her hands became tingly and then her feet became tingly shortly thereafter. Patient states she did not feel anxious at that time. Patient states it felt as though there was more difficult to speak however her speech remained clear. Patient denies any headache. Patient denies any numbness aside from this tingly feeling. Patient states she is still able to feel. Patient denies any chest pain or palpitations. Patient denies any difficulty breathing first breath per patient denies being ill recently having a cough or having any fever. Patient denies any abdominal pain patient denies nausea vomiting diarrhea. - Related Data Home Medications Medication Instructions Recorded Confirmed ALPRAZolam [Xanax] 0.25 mg PO BID PRN 03/18/15 05/11/19 Acetaminophen [Tylenol Arthritis] 650 mg PO DAILY 03/27/19 05/11/19 Levothyroxine Sodium [Synthroid] 88 mcg PO DAILY 03/27/19 05/11/19 Metoprolol Tartrate [Lopressor] 50 mg PO TID 03/27/19 05/11/19 Warfarin [Coumadin] 5 mg PO SUMOTUWETHSA 03/27/19 05/11/19 Warfarin [Coumadin] 7.5 mg PO FR 03/27/19 05/11/19 buPROPion XL [Wellbutrin XL] 150 mg PO DAILY 03/27/19 05/11/19 Previous Rx's Medication Instructions Recorded Atorvastatin [Lipitor] 20 mg PO HS #30 tab 03/31/19 Allergies Allergy/AdvReac Type Severity Reaction Status Date / Time kiwi Allergy "swollen Verified 05/11/19 15:11 lips and nausea" latex Allergy "avoids Verified 05/11/19 15:11 latex due to kiwi alg" Review of Systems ROS Statement: Those systems with pertinent positive or pertinent negative responses have been documented in the HPI. ROS Other: All systems not noted in ROS Statement are negative. Past Medical History Past Medical History: Atrial Fibrillation, Hyperlipidemia, Hypertension, Thyroid Disorder History of Any Multi-Drug Resistant Organisms: None Reported Past Surgical History: Pacemaker Additional Past Surgical History / Comment(s): 03-29-15 total rt hip , ANUPAM KNEE REPLACEMENT,ANUPAM CATARACT Past Anesthesia/Blood Transfusion Reactions: No Reported Reaction Type of Cardiac Device: Permanent Pacemaker Device Placement Date:: January 07, 2016 Past Psychological History: Anxiety, Depression Smoking Status: Former smoker Past Alcohol Use History: Occasional Past Drug Use History: None Reported - Past Family History Mother Family Medical History: No Reported History Additional Family Medical History / Comment(s): Mother at age 101. Brother(s) Additional Family Medical History / Comment(s): Liver CA Father Family Medical History: Osteoarthritis (OA) General Exam - General Exam Comments Initial Comments: GENERAL: Patient is well-developed and well-nourished. Patient is nontoxic and well- hydrated and is in no acute distress. ENT: Neck is soft and supple. No significant lymphadenopathy is noted. Oropharynx is clear. Moist mucous membranes. Neck has full range of motion without eliciting any pain. EYES: The sclera were anicteric and conjunctiva were pink and moist. Extraocular movements were intact and pupils were equal round and reactive to light. Eyelids were unremarkable. PULMONARY: Unlabored respirations. Good breath sounds bilaterally. No audible rales rhonchi or wheezing was noted. CARDIOVASCULAR: There is a regular rate and rhythm without any murmurs gallops or rubs. ABDOMEN: Soft and nontender with normal bowel sounds. No palpable organomegaly was noted. There is no palpable pulsatile mass. SKIN: Skin is clear with no lesions or rashes and otherwise unremarkable. NEUROLOGIC: Patient is alert and oriented x3. Cranial nerves II through XII are grossly intact. Motor and sensory are also intact. Normal speech, volume and content. Symmetrical smile. NIH is 0 MUSCULOSKELETAL: Normal extremities with adequate strength and full range of motion. No lower extremity swelling or edema. No calf tenderness. LYMPHATICS: No significant lymphadenopathy is noted PSYCHIATRIC: Normal psychiatric evaluation. Limitations: no limitations Course Vital Signs 05/11/19 14:35 Temperature 98.0 F Pulse Rate 60 Respiratory 16 Rate Blood Pressure 172/97 O2 Sat by Pulse 95 Oximetry Medical Decision Making - Medical Decision Making EKG shows a atrial paced rhythm at 60 bpm [place] interval is 194 QRS is 70 QT interval 426 QTC is 426 per patient's EKG shows no ST segment elevation or depression or T wave abnormalities are noted. CT of the brain showed no acute abnormality. Chest x-ray showed no acute abnormality. I spoke with the family and they agreed that the patient has high anxiety and she does not take her medicines for anxiety as prescribed. Patient states she will start taking them as prescribed. - Lab Data Result diagrams: 05/11/19 14:53 05/11/19 14:53 Lab Results 05/11/19 05/11/19 05/11/19 Range/Units 14:53 14:53 14:53 WBC 7.0 (3.8-10.6) k/uL RBC 4.89 (3.80-5.40) m/uL Hgb 14.6 (11.4-16.0) gm/dL Hct 43.3 (34.0-46.0) % MCV 88.7 (80.0-100.0) fL MCH 29.9 (25.0-35.0) pg MCHC 33.7 (31.0-37.0) g/dL RDW 13.9 (11.5-15.5) % Plt Count 166 (150-450) k/uL Neutrophils % 64 % Lymphocytes % 20 % Monocytes % 9 % Eosinophils % 3 % Basophils % 0 % Neutrophils # 4.5 (1.3-7.7) k/uL Lymphocytes # 1.4 (1.0-4.8) k/uL Monocytes # 0.6 (0-1.0) k/uL Eosinophils # 0.2 (0-0.7) k/uL Basophils # 0.0 (0-0.2) k/uL PT 22.3 H (9.0-12.0) sec INR 2.3 H (<1.2) APTT 34.0 H (22.0-30.0) sec Sodium 139 (137-145) mmol/L Potassium 4.3 (3.5-5.1) mmol/L Chloride 105 (98-107) mmol/L Carbon Dioxide 24 (22-30) mmol/L Anion Gap 10 mmol/L BUN 18 H (7-17) mg/dL Creatinine 0.79 (0.52-1.04) mg/dL Est GFR (CKD-EPI)AfAm 77 (>60 ml/min/1.73 sqM) Est GFR (CKD-EPI)NonAf 67 (>60 ml/min/1.73 sqM) Glucose 111 H (74-99) mg/dL Calcium 9.6 (8.4-10.2) mg/dL Total Bilirubin 0.6 (0.2-1.3) mg/dL AST 35 (14-36) U/L ALT 33 (9-52) U/L Alkaline Phosphatase 72 (38-126) U/L Troponin I (0.000-0.034) ng/mL Total Protein 7.3 (6.3-8.2) g/dL Albumin 4.3 (3.5-5.0) g/dL 05/11/19 Range/Units 14:53 WBC (3.8-10.6) k/uL RBC (3.80-5.40) m/uL Hgb (11.4-16.0) gm/dL Hct (34.0-46.0) % MCV (80.0-100.0) fL MCH (25.0-35.0) pg MCHC (31.0-37.0) g/dL RDW (11.5-15.5) % Plt Count (150-450) k/uL Neutrophils % % Lymphocytes % % Monocytes % % Eosinophils % % Basophils % % Neutrophils # (1.3-7.7) k/uL Lymphocytes # (1.0-4.8) k/uL Monocytes # (0-1.0) k/uL Eosinophils # (0-0.7) k/uL Basophils # (0-0.2) k/uL PT (9.0-12.0) sec INR (<1.2) APTT (22.0-30.0) sec Sodium (137-145) mmol/L Potassium (3.5-5.1) mmol/L Chloride (98-107) mmol/L Carbon Dioxide (22-30) mmol/L Anion Gap mmol/L BUN (7-17) mg/dL Creatinine (0.52-1.04) mg/dL Est GFR (CKD-EPI)AfAm (>60 ml/min/1.73 sqM) Est GFR (CKD-EPI)NonAf (>60 ml/min/1.73 sqM) Glucose (74-99) mg/dL Calcium (8.4-10.2) mg/dL Total Bilirubin (0.2-1.3) mg/dL AST (14-36) U/L ALT (9-52) U/L Alkaline Phosphatase (38-126) U/L Troponin I <0.012 (0.000-0.034) ng/mL Total Protein (6.3-8.2) g/dL Albumin (3.5-5.0) g/dL Disposition Clinical Impression: Anxiety, Paresthesias Disposition: HOME SELF-CARE Condition: Good Instructions (If sedation given, give patient instructions): Paresthesia (ED) Is patient prescribed a controlled substance at d/c from ED?: No Referrals: Raul Avendaño MD [Primary Care Provider] - 1-2 days Time of Disposition: 17:07
[2019-05-11 15:11] LABS: INR 2.3 (<1.2); Prothrombin Time 22.3 sec (9.0-12.0)
[2019-05-11 15:16] LABS: Albumin 4.3 g/dL (3.5-5.0); Calcium 9.6 mg/dL (8.4-10.2); Potassium 4.3 mmol/L (3.5-5.1); Total Bilirubin 0.6 mg/dL (0.2-1.3); Total Protein 7.3 g/dL (6.3-8.2)
[2019-05-11 15:23] LABS: Basophils % (A) 0 %; Eosinophils # (A) 0.2 k/uL (0-0.7); Eosinophils % (A) 3 %; HCT 43.3 % (34.0-46.0); HGB 14.6 gm/dL (11.4-16.0); Lymphocytes # (A) 1.4 k/uL (1.0-4.8); Lymphocytes % (A) 20 %; MCH 29.9 pg (25.0-35.0); MCHC 33.7 g/dL (31.0-37.0); MCV 88.7 fL (80.0-100.0); Mean Platelet Volume 7.1; Monocytes # (A) 0.6 k/uL (0-1.0); Monocytes % (A) 9 %; Neutrophils # (A) 4.5 k/uL (1.3-7.7); Neutrophils % (A) 64 %; Platelet Count 166 k/uL (150-450); RBC 4.89 m/uL (3.80-5.40); RDW 13.9 % (11.5-15.5)
--- NOTE | 2019-05-11 15:45 | CT ---
EXAMINATION TYPE: CT brain wo con DATE OF EXAM: 05/11/2019 COMPARISON: 03/27/2019 HISTORY: Neuro deficit, acute, stroke suspected. CT DLP: 1154.4 mGycm Automated exposure control for dose reduction was used. FINDINGS: There is cerebral atrophy. There is no mass effect nor midline shift. There is no sign of intracrania l hemorrhage. Calvarium is intact. IMPRESSION: TRIPLE ATROPHY. NO ACUTE INTRACRANIAL ABNORMALITY. NO CHANGE.
--- NOTE | 2019-05-11 16:01 | XR ---
EXAMINATION TYPE: XR chest 2V DATE OF EXAM: 05/11/2019 COMPARISON: 03/27/2019 HISTORY: Dizziness TECHNIQUE: Frontal and lateral views of the chest are obtained. FINDINGS: There is no heart failure nor confluent pneumonic infiltrate. There is a left axillary pac emaker. There is no pleural effusion. Thoracic aorta is atheromatous. There is slight increased densi ty left lung base. IMPRESSION: Normal heart.. Atheromatous aorta. Fibrotic changes or subsegmental atelectasis left yessy g base unchanged.
[2019-05-11] MEDS ORDERED: METOPROLOL TARTRATE 50 MG TAB PO STA (16:55)
[2019-05-11 17:14] VITALS: BP 199/96; PULSE 65
== END 2019-05-11 17:09 | disposition home or self-care (01) ==
LOC: EC 14:30
DX: F41.9 Anxiety disorder, unspecified (principal); R20.2 Paresthesia of skin; I48.91 Unspecified atrial fibrillation; I10 Essential (primary) hypertension; E07.9 Disorder of thyroid, unspecified; F32.9 Major depressive disorder, single episode, unspecified; Z87.891 Personal history of nicotine dependence; Z91.018 Allergy to other foods; Z91.040 Latex allergy status; Z79.01 Long term (current) use of anticoagulants; Z79.890 Hormone replacement therapy; Z79.891 Long term (current) use of opiate analgesic; Z79.899 Other long term (current) drug therapy; Z86.73 Personal history of transient ischemic attack (TIA), and cerebral infarction without residual deficits; Z95.0 Presence of cardiac pacemaker
CPT/HCPCS: 36415; 70450; 71046; 80053; 84484; 85025; 85610; 85730; 93005; 96360; 96361; 99285

== ENCOUNTER → 2019-05-26 | Outpatient (CLI) | payer MEDICARE ==
--- NOTE | 2019-05-26 15:43 | CT ---
EXAMINATION TYPE: CT angio neck DATE OF EXAM: 05/26/2019 HISTORY: TIA, carotid stenosis. COMPARISON: Carotid ultrasound dated 06/15/2016 CT DLP: 306 mGycm. Automated Exposure Control for Dose Reduction was Utilized. TECHNIQUE: CTA scan of the neck is performed with IV Contrast, patient injected with 65 mL of Isovue 370, axial images are obtained, coronal and sagittal reformatted images are reviewed. Three-D recons tructed images are created on an independent workstation and reviewed. FINDINGS: Carotid/Vascular Structures: Moderate atherosclerosis of the aortic arch. No hemodynamically signific ant stenosis of the great vessel ostia. Approximately 40% stenosis of the proximal left subclavian ar edi. Conventional three-vessel branch pattern of the aortic arch. There is tortuous course of the co mmon carotid arteries bilaterally. No hemodynamically significant stenosis of the common carotid jose hattie. The carotid bulbs demonstrate minimal calcific atheromatous change on the left and right. The l eft internal carotid artery and its cervical portion demonstrates no hemodynamically significant sten osis. The right proximal carotid artery demonstrates focal stenosis of 50% extending a distance of 1. 2 cm beginning at the origin of the right internal carotid artery. The remainder of the cervical port ion of the right internal carotid artery demonstrates no hemodynamically significant stenosis. Minima l calcific atheromatous plaquing of the cavernous portion of the left internal carotid artery. Other: Scattered pulmonary blebs. Scleral calcifications are incidentally noted. There is a suspicious 1.1 x 1.1 cm solid left upper lobe peripheral pulmonary nodule on series 5 imag e 70. Scattered groundglass opacities are likely on the basis of atelectasis. Minimal biapical pleura l parenchymal scarring. Mucosal retention cysts are seen within the maxillary sinuses measuring 1.5 cm on the right and 1.7 c m on the left. Remaining paranasal sinuses and mastoid air cells are well aerated. There is grade 1 a nterolisthesis of C3 on C4, C4 and C5, C5 on C6 and C7 on T1. No vertebral body height loss. Advanced degenerative changes of the cervical spine. IMPRESSION: 1. Suspicious left upper lobe pulmonary nodule measuring 1.1 cm. Full evaluation of the chest is taty mmended with CT thorax with contrast. 2. Focal stenosis of 50% of the proximal right internal carotid artery measuring a distance of 1.2 cm .
== END | disposition home or self-care (01) ==
LOC: RADCTMAIN 13:21
PROVIDERS: ATTEND Psychiatry & Neurology Neurology
DX: I65.21 Occlusion and stenosis of right carotid artery (principal)
CPT/HCPCS: 82565; 84520; 70498; 36415; Q9967

== ENCOUNTER 2019-05-30 12:07 | Observation (INO) | payer MEDICARE ==
[2019-05-30 12:50] LABS: Basophils # (A) 0.1 k/uL (0-0.2); Basophils % (A) 1 %; Eosinophils # (A) 0.2 k/uL (0-0.7); Eosinophils % (A) 2 %; HCT 44.3 % (34.0-46.0); HGB 14.8 gm/dL (11.4-16.0); Lymphocytes # (A) 1.2 k/uL (1.0-4.8); Lymphocytes % (A) 17 %; MCH 29.7 pg (25.0-35.0); MCHC 33.5 g/dL (31.0-37.0); MCV 88.4 fL (80.0-100.0); Mean Platelet Volume 7.6; Monocytes # (A) 0.6 k/uL (0-1.0); Monocytes % (A) 8 %; Neutrophils # (A) 4.9 k/uL (1.3-7.7); Neutrophils % (A) 68 %; Platelet Count 198 k/uL (150-450); RBC 5.01 m/uL (3.80-5.40); RDW 13.5 % (11.5-15.5); WBC 7.2 k/uL (3.8-10.6)
--- NOTE | 2019-05-30 12:56 | XR ---
EXAMINATION TYPE: XR chest 2V DATE OF EXAM: 05/30/2019 COMPARISON: Prior chest 05/11/2019 HISTORY: Bradycardia, dysrhythmia TECHNIQUE: Frontal and lateral views of the chest are obtained. FINDINGS: There is no focal air space opacity, pleural effusion, or pneumothorax seen. The cardiac silhouette size is within normal limits, stable. Generator is present in left pectoral region, there are leads in the right atrium and ventricle. Biapical pleural thickening is noted. Eventration of th e hemidiaphragms. Prominent lung volumes with flattening the hemidiaphragms may be indicative of COPD . Sclerotic density within the left humeral head is stable. Aorta is dense. The osseous structures ar e intact. IMPRESSION: No acute cardiopulmonary process. Indeterminate dense focus in the left humerus. Postpro cedural changes.
[2019-05-30 12:59] LABS: INR 1.9 (<1.2); Partial Thromboplastin Time 34.1 sec (22.0-30.0); Prothrombin Time 18.4 sec (9.0-12.0)
[2019-05-30 13:08] LABS: Albumin 4.3 g/dL (3.5-5.0); Calcium 9.8 mg/dL (8.4-10.2); Potassium 4.9 mmol/L (3.5-5.1); Total Bilirubin 0.8 mg/dL (0.2-1.3); Total Protein 7.5 g/dL (6.3-8.2)
[2019-05-30] MEDS ORDERED: RX INFO: IV CONTRAST WAS GIVEN 1 EACH MISC MISCELLANE PRN (13:10)
--- NOTE | 2019-05-30 13:13 | ED ---
General Adult HPI - General Chief complaint: Arrhythmia/Palpitations Stated complaint: Low heart rate Time Seen by Provider: 05/30/19 12:24 Source: patient Mode of arrival: ambulatory Limitations: no limitations - History of Present Illness Initial comments: Dictation was produced using [employer] dictation software. please excuse any gram matical, word or spelling errors. Chief Complaint: 88 yo Female presents with bradycardia. History of Present Illness: 88-year-old female she presents today with bradycardia. Patient has chronic debility. She was being visited by her home health care nurse when she was found to have a heart rate in the 30s measured by home healthcare nurse and occupational therapist. Patient is history of pacemaker and atrial fibrillation. Patient has no history of low heart rates. She is accompanied by family member who is concerned. Patient has also been having TIA symptoms for the last several days. Most recently 3 days ago she had one to 2 hours of slurred speech and bilateral lower extremity weakness. She has been evaluated in emergency department earlier this month told that her symptoms may be secondary to anxiety. Patient denies any strokelike symptoms currently. She was seen by neurology locally and had a CT angios the neck performed.. There was however incidental finding of a left upper pulmonary nodule. CT angios the neck also showed focal stenosis of 50% to the proximal right internal carotid artery. The ROS documented in this emergency department record has been reviewed and confirmed by me. Those systems with pertinent positive or negative responses have been documented in the HPI. All other systems are other negative and/or noncontributory. PHYSICAL EXAM: General Impression: Alert and oriented x3, not in acute distress HEENT: Normocephalic atraumatic, extra-ocular movements intact, pupils equal and reactive to light bilaterally, mucous membranes moist. Cardiovascular: Heart regular rate and rhythm, S1&S2 audible, no murmurs, rubs or gallops Chest: Lungs clear to auscultation bilaterally, no rhonchi, no wheeze, no rales Abdomen: Bowel sounds present, abdomen soft, non-tender, non-distended, no organomegaly Musculoskeletal: Pulses present and equal in all extremities, no peripheral edema Motor: no focal deficits noted Neurological: CN II-XII grossly intact, no focal motor or sensory deficits noted, NIH 0 Skin: Intact with no visualized rashes Psych: Normal affect and mood ED course: 88-year-old female presents with chief complaint of bradycardia seen by home health care nurse. Vital signs upon arrival are within acceptable limits. Patient is on Coumadin therapy. Medications were reviewed. Laboratory evaluation obtained. CBC unremarkable. INR is 1.9, metabolic panel is unremarkable. no Electrolyte abnormalities. Chest x-ray was performed shows no acute processes. Family was adamant about patient receiving CT given that there was an incidental finding seen on her CT angiogram neck. CT of the chest shows measure 1.0 cm left upper lobe. Patient was interrogated. There is no obvious finding seen on pacemaker interrogation. Given that patient is having bradycardia there is concern of possible malfunction. Patient will be admitted with cardiology consultation. Discussed patient case with Dr. Holloway. She'll be dispositioned to observation unit. EKG interpretation: Ventricular rate 67, atrial paced rhythm,. Interval 200, QS 80, QTc 437. No MA prolongation, no QTC prolongation, no ST or T-wave changes noted. EKG compared to member third 2018 showing no changes. Overall, this EKG is unremarkable - Related Data Home Medications Medication Instructions Recorded Confirmed ALPRAZolam [Xanax] 0.25 mg PO BID PRN 03/18/15 05/30/19 Levothyroxine Sodium [Synthroid] 88 mcg PO DAILY 03/27/19 05/30/19 Metoprolol Tartrate [Lopressor] 50 mg PO TID 03/27/19 05/30/19 Warfarin [Coumadin] 5 mg PO SUMOTUWETHSA 03/27/19 05/30/19 Warfarin [Coumadin] 7.5 mg PO FR 03/27/19 05/30/19 buPROPion XL [Wellbutrin XL] 150 mg PO DAILY 03/27/19 05/30/19 Acetaminophen [Tylenol Extra 500 mg PO DAILY PRN 05/30/19 05/30/19 Strength] Citalopram Hydrobromide 10 mg PO DAILY 05/30/19 05/30/19 [Citalopram HBr] Previous Rx's Medication Instructions Recorded Atorvastatin [Lipitor] 20 mg PO HS #30 tab 03/31/19 Allergies Allergy/AdvReac Type Severity Reaction Status Date / Time kiwi Allergy "swollen Verified 05/30/19 14:35 lips and nausea" latex Allergy "avoids Verified 05/30/19 14:35 latex due to kiwi alg" Review of Systems ROS Statement: Those systems with pertinent positive or pertinent negative responses have been documented in the HPI. ROS Other: All systems not noted in ROS Statement are negative. Past Medical History Past Medical History: Atrial Fibrillation, Hyperlipidemia, Hypertension, Thyroid Disorder History of Any Multi-Drug Resistant Organisms: None Reported Past Surgical History: Pacemaker Additional Past Surgical History / Comment(s): 03-29-15 total rt hip , ANUPAM KNEE REPLACEMENT,ANUPAM CATARACT Past Anesthesia/Blood Transfusion Reactions: No Reported Reaction Type of Cardiac Device: Permanent Pacemaker Device Placement Date:: January 07, 2016 Past Psychological History: Anxiety, Depression Smoking Status: Former smoker Past Alcohol Use History: Occasional Past Drug Use History: None Reported - Past Family History Mother Family Medical History: No Reported History Additional Family Medical History / Comment(s): Mother at age 101. Brother(s) Additional Family Medical History / Comment(s): Liver CA Father Family Medical History: Osteoarthritis (OA) General Exam Limitations: no limitations Course Vital Signs 05/30/19 05/30/19 05/30/19 12:10 12:30 13:00 Temperature 97.6 F Pulse Rate 60 60 67 Respiratory 20 16 19 Rate Blood Pressure 186/101 157/85 159/89 O2 Sat by Pulse 98 96 93 L Oximetry 05/30/19 14:00 Temperature Pulse Rate 75 Respiratory 16 Rate Blood Pressure 144/77 O2 Sat by Pulse 94 L Oximetry Medical Decision Making - Lab Data Result diagrams: 05/30/19 12:36 05/30/19 12:36 Lab Results 05/30/19 05/30/19 05/30/19 Range/Units 12:36 12:36 12:36 WBC 7.2 (3.8-10.6) k/uL RBC 5.01 (3.80-5.40) m/uL Hgb 14.8 (11.4-16.0) gm/dL Hct 44.3 (34.0-46.0) % MCV 88.4 (80.0-100.0) fL MCH 29.7 (25.0-35.0) pg MCHC 33.5 (31.0-37.0) g/dL RDW 13.5 (11.5-15.5) % Plt Count 198 (150-450) k/uL Neutrophils % 68 % Lymphocytes % 17 % Monocytes % 8 % Eosinophils % 2 % Basophils % 1 % Neutrophils # 4.9 (1.3-7.7) k/uL Lymphocytes # 1.2 (1.0-4.8) k/uL Monocytes # 0.6 (0-1.0) k/uL Eosinophils # 0.2 (0-0.7) k/uL Basophils # 0.1 (0-0.2) k/uL PT 18.4 H (9.0-12.0) sec INR 1.9 H (<1.2) APTT 34.1 H (22.0-30.0) sec Sodium 137 (137-145) mmol/L Potassium 4.9 (3.5-5.1) mmol/L Chloride 103 (98-107) mmol/L Carbon Dioxide 23 (22-30) mmol/L Anion Gap 11 mmol/L BUN 16 (7-17) mg/dL Creatinine 0.83 (0.52-1.04) mg/dL Est GFR (CKD-EPI)AfAm 73 (>60 ml/min/1.73 sqM) Est GFR (CKD-EPI)NonAf 63 (>60 ml/min/1.73 sqM) Glucose 96 (74-99) mg/dL Calcium 9.8 (8.4-10.2) mg/dL Magnesium 2.0 (1.6-2.3) mg/dL Total Bilirubin 0.8 (0.2-1.3) mg/dL AST 40 H (14-36) U/L ALT 32 (9-52) U/L Alkaline Phosphatase 82 (38-126) U/L Troponin I (0.000-0.034) ng/mL Total Protein 7.5 (6.3-8.2) g/dL Albumin 4.3 (3.5-5.0) g/dL TSH 1.540 (0.465-4.680) mIU/L 05/30/19 Range/Units 12:36 WBC (3.8-10.6) k/uL RBC (3.80-5.40) m/uL Hgb (11.4-16.0) gm/dL Hct (34.0-46.0) % MCV (80.0-100.0) fL MCH (25.0-35.0) pg MCHC (31.0-37.0) g/dL RDW (11.5-15.5) % Plt Count (150-450) k/uL Neutrophils % % Lymphocytes % % Monocytes % % Eosinophils % % Basophils % % Neutrophils # (1.3-7.7) k/uL Lymphocytes # (1.0-4.8) k/uL Monocytes # (0-1.0) k/uL Eosinophils # (0-0.7) k/uL Basophils # (0-0.2) k/uL PT (9.0-12.0) sec INR (<1.2) APTT (22.0-30.0) sec Sodium (137-145) mmol/L Potassium (3.5-5.1) mmol/L Chloride (98-107) mmol/L Carbon Dioxide (22-30) mmol/L Anion Gap mmol/L BUN (7-17) mg/dL Creatinine (0.52-1.04) mg/dL Est GFR (CKD-EPI)AfAm (>60 ml/min/1.73 sqM) Est GFR (CKD-EPI)NonAf (>60 ml/min/1.73 sqM) Glucose (74-99) mg/dL Calcium (8.4-10.2) mg/dL Magnesium (1.6-2.3) mg/dL Total Bilirubin (0.2-1.3) mg/dL AST (14-36) U/L ALT (9-52) U/L Alkaline Phosphatase (38-126) U/L Troponin I <0.012 (0.000-0.034) ng/mL Total Protein (6.3-8.2) g/dL Albumin (3.5-5.0) g/dL TSH (0.465-4.680) mIU/L Disposition Clinical Impression: Bradycardia Disposition: ADMITTED IP TO THIS HOSP Condition: Fair Referrals: Raul Avendaño MD [Primary Care Provider] - 1-2 days Decision Time: 14:59
--- NOTE | 2019-05-30 14:07 | CT ---
EXAMINATION TYPE: CT chest w con DATE OF EXAM: 05/30/2019 COMPARISON: CTA neck dated 05/26/2019 HISTORY: pulmonary nodule CT DLP: 232.9 mGycm. Automated Exposure Control for Dose Reduction was Utilized. TECHNIQUE: CT scan of the thorax is performed following with IV Contrast, patient injected with 100 mL of Isovue 300. FINDINGS: LUNGS: There are mild centrilobular emphysematous changes with blebs scattered throughout. Biapical p leural-parenchymal scarring is seen on minimal bibasilar subsegmental atelectasis, right greater than left. On image 12 and the left parietal lobe there is a spiculated 1.0 x 0.9 cm pulmonary nodule. No focal consolidation or pleural effusion. There is no pleural effusion or pneumothorax seen. The tr acheobronchial tree is patent. Moderate calcific atheromatous changes of the thoracic aorta. Minimal coronary artery calcifications. MEDIASTINUM: There are no greater than 1 cm hilar or mediastinal lymph nodes. No pericardial effusi on is seen. OTHER: There is an indeterminate left adrenal gland nodule measuring 1.5 cm this has an average Houns field unit of 56. Mild degree hepatic steatosis is seen with a solitary 1.9 cm hepatic cyst. There is grade 1 anterolisthesis of T2 1 and T2 and moderate multilevel degenerative changes of the thoracic spine with numerous Schmorl's nodes seen. IMPRESSION: 1. Redemonstration of a 1.0 cm left upper lobe pulmonary nodule. No additional pulmonary nodule is se en throughout the chest. This is a suspicious finding in the could be further evaluated with PET/CT. Mild underlying emphysematous change. No mediastinal adenopathy. 2. Indeterminate left adrenal gland nodule measures 1.5 cm. This does not meet criteria for a benign adenoma on enhanced CT. Abdominal MRI with in and out of phase imaging is recommended for full charac terization.
[2019-05-30] MEDS ORDERED: NALOXONE 0.4 MG/ML 1 ML VIAL IV PRN (14:56)
[2019-05-30] MEDS ORDERED: ONDANSETRON 4 MG/2 ML VIAL IVP PRN (14:56)
[2019-05-30] MEDS ORDERED: ACETAMINOPHEN TAB 500 MG TAB PO PRN (14:59)
[2019-05-30] MEDS ORDERED: WARFARIN 7.5 MG TAB PO SCH (18:00)
[2019-05-30 18:03] VITALS: BMI 23.8
[2019-05-30] MEDS: SODIUM CHLORIDE 0.9% 1,000 ML IV SCH (18:42)
[2019-05-30] MEDS: ATORVASTATIN 20 MG TAB PO SCH (20:16)
--- NOTE | 2019-05-30 21:03 | P.HPIM ---
History of Present Illness H&P Date: 05/30/19 Chief Complaint: Dizziness History of presenting complaint: This is a very pleasant [address] Raul Avendaño. Patient's outsole handler is Dr. Alexander alves. Chronic stable medical conditions include hypertension, hyperlipidemia, hypothyroid, anxiety, depression, or strength redness. Patient does have a permanent pacemaker. Patient for 3-4 weeks and noticed that she been dizzy off and on. Patient had a visiting nurse came out she found a heart rate down to 37. Patient's and has been feeling off balance. Patient is intubated. Pacemaker was interrogated in the ER. Admitted for cardiac evaluation. Patient has been on metoprolol 50 mg 3 times a day. Which is currently held. No chest pain no palpitation. Review of systems: GEN.: Tired EYES: None HEENT: None NECK: None RESPIRATORY: None CARDIOVASCULAR: As above GASTROINTESTINAL: None GENITOURINARY: None MUSCULOSKELETAL: Joint pains] LYMPHATICS: None HEMATOLOGICAL: None PSYCHIATRY: None NEUROLOGICAL: As above, no focal Past medical history to include: Ht fibrillation, hypertension, hyperlipidemia, hypothyroid, permanent pacemaker, osteoarthritis, anxiety depression Social history: Does smoke in the past. Lives at the [facility] .Physical examination: VITAL SIGNS: 97.6, 60, 20, 157/85, 98% room air GENERAL: BMI 23.9, sitting up the edge of the bed, tired appearing. EYES: Pupils equal. Conjunctiva normal. HEENT: External appearance of nose and ears normal, oral cavity grossly normal. NECK: JVD not raised; masses not palpable. HEART: First and second heart sounds are normal; no edema. LUNGS: Respiratory rate normal; clear to auscultation. ABDOMEN: Soft, nontender, liver spleen not palpable, no masses palpable. PSYCH: Alert and oriented x3; mood and affect slightly low l. NEUROLOGICAL: Cranial nerves grossly intact; no facial asymmetry, power and sensation grossly intact. LYMPHATICS: No lymph nodes palpable in the axilla and neck Musculoskeletal: Evidence of OA especially in the hands INVESTIGATIONS, reviewed in the clinical context: White count 7.2 hemoglobin 14.8 platelets 198 INR 1.9 potassium 4.9 crit 0.83 Troponin I is less than 0.012 EKG tracing personally reviewed by me-8 showed paced rhythm -Checks x-ray film personally reviewed by me-lung varma are clear, PPm CT chest-1 cm left upper lobe pulmonary nodule Assessment: -Bradycardia possibly from underlying metoprolol. Permanent pacemaker interrogation has been done in the ER. -Paroxysmal atrial fibrillation, chronically on Coumadin -Coumadin monitoring -Hyperlipidemia -Essential hypertension -Hypothyroid -Depression and anxiety not otherwise specified -1 cm left upper lobe pulmonary nodule. To be followed as an outpatient Plan: Patient that a currently held. Home medications resumed. INR will be followed. Cartilage was consulted. Patient's TSH is normal. Care was discussed with the patient. Questions were answered Past Medical History Past Medical History: Atrial Fibrillation, Hyperlipidemia, Hypertension, Thyroid Disorder History of Any Multi-Drug Resistant Organisms: None Reported Past Surgical History: Pacemaker Additional Past Surgical History / Comment(s): 03-29-15 total rt hip , ANUPAM KNEE REPLACEMENT,ANUPAM CATARACT Past Anesthesia/Blood Transfusion Reactions: No Reported Reaction Type of Cardiac Device: Permanent Pacemaker Device Placement Date:: January 07, 2016 Past Psychological History: Anxiety, Depression Smoking Status: Former smoker Past Alcohol Use History: Occasional Past Drug Use History: None Reported - Past Family History Mother Family Medical History: No Reported History Additional Family Medical History / Comment(s): Mother at age 101. Brother(s) Additional Family Medical History / Comment(s): Liver CA Father Family Medical History: Osteoarthritis (OA) Medications and Allergies Home Medications Medication Instructions Recorded Confirmed Type ALPRAZolam [Xanax] 0.25 mg PO BID PRN 03/18/15 05/30/19 History Levothyroxine Sodium [Synthroid] 88 mcg PO DAILY 03/27/19 05/30/19 History Metoprolol Tartrate [Lopressor] 50 mg PO TID 03/27/19 05/30/19 History Warfarin [Coumadin] 5 mg PO SUMOTUWETHSA 03/27/19 05/30/19 History Warfarin [Coumadin] 7.5 mg PO FR 03/27/19 05/30/19 History buPROPion XL [Wellbutrin XL] 150 mg PO DAILY 03/27/19 05/30/19 History Atorvastatin [Lipitor] 20 mg PO HS #30 tab 03/31/19 05/30/19 Rx Acetaminophen [Tylenol Extra 500 mg PO DAILY PRN 05/30/19 05/30/19 History Strength] Citalopram Hydrobromide 10 mg PO DAILY 05/30/19 05/30/19 History [Citalopram HBr] Allergies Allergy/AdvReac Type Severity Reaction Status Date / Time kiwi Allergy "swollen Verified 05/30/19 14:35 lips and nausea" latex Allergy "avoids Verified 05/30/19 14:35 latex due to kiwi alg" Physical Exam Vitals: Vital Signs Temp Pulse Pulse Resp BP BP Pulse Ox 05/30/19 19:44 97.1 F L 60 18 135/71 97 05/30/19 17:00 64 15 141/93 93 L 05/30/19 16:30 60 18 144/85 92 L 05/30/19 16:15 97.5 F L 64 16 180/74 93 L 05/30/19 15:00 60 16 134/70 94 L 05/30/19 14:30 90 19 132/71 95 05/30/19 14:00 75 16 144/77 94 L 05/30/19 13:00 67 19 159/89 93 L 05/30/19 12:30 60 16 157/85 96 05/30/19 12:10 97.6 F 60 20 186/101 98 Intake and Output 05/30/19 05/30/19 05/30/19 06:59 14:59 22:59 Other: Voiding Method Toilet Weight 67.132 kg Results CBC & Chem 7: 05/30/19 12:36 05/30/19 12:36 Labs: Abnormal Lab Results - Last 24 Hours (Table) 05/30/19 05/30/19 Range/Units 12:36 12:36 PT 18.4 H (9.0-12.0) sec INR 1.9 H (<1.2) APTT 34.1 H (22.0-30.0) sec AST 40 H (14-36) U/L Thrombosis Risk Factor Assmnt - Choose All That Apply Any of the Below Risk Factors Present?: No Other Risk Factors: No Other congenital or acquired thrombophilia - If yes, enter type in comment: No Thrombosis Risk Factor Assessment Level: Very Low Risk
[2019-05-30] MEDS: ACETAMINOPHEN TAB 325 MG TAB PO PRN (22:53)
[2019-05-31 05:04] VITALS: RESP 18
[2019-05-31] MEDS: LEVOTHYROXINE 88 MCG TAB PO SCH (06:07)
[2019-05-31] MEDS: ACETAMINOPHEN TAB 325 MG TAB PO PRN ×3 (06:07→21:59)
[2019-05-31] MEDS: buPROPion XL 150 MG TAB.ER.24H PO SCH (08:05)
[2019-05-31] MEDS: CITALOPRAM HYDROBROMIDE 10 MG TAB PO SCH (08:07)
[2019-05-31] MEDS: ALPRAZolam 0.25 MG TAB PO PRN ×2 (08:10→19:55)
--- NOTE | 2019-05-31 09:14 | P.CRDCN ---
History of Present Illness Consult date: 05/31/19 Requesting physician: Goyo Holloway Reason for Consult (text): Bradycardia Chief complaint: Dizziness History of present illness: This is a pleasant 88-year-old female who follows with Dr. Espinoza in the office. She is a known history of paroxysmal atrial fibrillation, anticoagulated on Coumadin, hypertension, hyperlipidemia, thyroid disorder, sick sinus syndrome, status post permanent pacemaker implantation. Presented to the emergency department after she was found to have a heart rate of 37 by her home health care nurse. This was determined by pulse oximeter as well as palpation of the radial pulse. According to the patient she has been feeling dizzy on and off for quite some time and was feeling dizzy yesterday. EKG on admission to the emergency department showed atrial paced rhythm with PACs. No evidence of bradycardia since admission. Laboratory values showed a normal CBC, normal TSH, normal electrolytes and renal function. INR came in to be a bit low at 1.9. Her metoprolol has been placed on hold. Limited device interrogation done in the emergency department shows normal sensing and lead impedance capture was not tested due to limitations of device being used. Along with the dizziness, patient has been complaining of slurred speech after eating. She was here and worked up for TIA in March at which time her INR was 1.8. According to the patient her INRs have been stable on her monthly checks. She did have an echocardiogram during her most recent admission which showed a normal LV systolic function with an ejection fraction between 55-60%, intact interatrial and interventricular septums, mild AR, mild MR, mild to moderate TR and moderate pulmonary hypertension with an estimated RVSP of 45.94 mmHg. She also recently underwent CTA of the neck due to recurrent TIA symptoms which showed focal stenosis of 50% of the proximal right internal carotid artery measuring a distance of 1.2 cm and an incidental finding of a suspicious left upper lobe pul monary nodule measuring 1.1 cm and recommended for evaluation of the chest with CT with contrast. A CAT scan of the chest on admission demonstrated a 1 subtle left upper lobe pulmonary nodule with mild underlying emphysematous change, no mediastinal adenopathy and indeterminate left adrenal gland nodule measuring 1.5 cm. Upon examination, patient is resting comfortable in bed. She currently has no complaints. She does complain of some dizziness on and off that has been ongoing. Also complained of slurred speech after eating. She does have occasional shortness of breath with exertion. According to the patient she was last checked in the office in December and has an upcoming appointment to see Dr. Espinoza and have her pacemaker interrogated the beginning of next month. She denies complaints of chest discomfort, has occasional palpitations that are not new, very mild lower extremity edema at times, nor orthopnea, no PND. Past Medical History Past Medical History: Atrial Fibrillation, Hyperlipidemia, Hypertension, Thyroid Disorder History of Any Multi-Drug Resistant Organisms: None Reported Past Surgical History: Pacemaker Additional Past Surgical History / Comment(s): 03-29-15 total rt hip , ANUPAM KNEE REPLACEMENT,ANUPAM CATARACT Past Anesthesia/Blood Transfusion Reactions: No Reported Reaction Type of Cardiac Device: Permanent Pacemaker Device Placement Date:: January 07, 2016 Past Psychological History: Anxiety, Depression Smoking Status: Former smoker Past Alcohol Use History: Occasional Past Drug Use History: None Reported - Past Family History Mother Family Medical History: No Reported History Additional Family Medical History / Comment(s): Mother at age 101. Brother(s) Additional Family Medical History / Comment(s): Liver CA Father Family Medical History: Osteoarthritis (OA) Medications and Allergies Home Medications Medication Instructions Recorded Confirmed Type ALPRAZolam [Xanax] 0.25 mg PO BID PRN 03/18/15 05/30/19 History Levothyroxine Sodium [Synthroid] 88 mcg PO DAILY 03/27/19 05/30/19 History Metoprolol Tartrate [Lopressor] 50 mg PO TID 03/27/19 05/30/19 History Warfarin [Coumadin] 5 mg PO SUMOTUWETHSA 03/27/19 05/30/19 History Warfarin [Coumadin] 7.5 mg PO FR 03/27/19 05/30/19 History buPROPion XL [Wellbutrin XL] 150 mg PO DAILY 03/27/19 05/30/19 History Atorvastatin [Lipitor] 20 mg PO HS #30 tab 03/31/19 05/30/19 Rx Acetaminophen [Tylenol Extra 500 mg PO DAILY PRN 05/30/19 05/30/19 History Strength] Citalopram Hydrobromide 10 mg PO DAILY 05/30/19 05/30/19 History [Citalopram HBr] Allergies Allergy/AdvReac Type Severity Reaction Status Date / Time kiwi Allergy "swollen Verified 05/30/19 14:35 lips and nausea" latex Allergy "avoids Verified 05/30/19 14:35 latex due to kiwi alg" Physical Exam Vitals: Vital Signs Temp Pulse Pulse Resp BP BP Pulse Ox 05/31/19 04:00 97.9 F 63 18 132/68 93 L 05/31/19 00:00 97.2 F L 65 17 124/71 93 L 05/30/19 19:44 97.1 F L 60 18 135/71 97 05/30/19 17:00 64 15 141/93 93 L 05/30/19 16:30 60 18 144/85 92 L 05/30/19 16:15 97.5 F L 64 16 180/74 93 L 05/30/19 15:00 60 16 134/70 94 L 05/30/19 14:30 90 19 132/71 95 05/30/19 14:00 75 16 144/77 94 L 05/30/19 13:00 67 19 159/89 93 L 05/30/19 12:30 60 16 157/85 96 05/30/19 12:10 97.6 F 60 20 186/101 98 Intake and Output 05/30/19 05/31/19 05/31/19 22:59 06:59 14:59 Intake Total 100 Balance 100 Intake: Intake, IV Titration 100 Amount Sodium Chloride 0.9% 1, 100 000 ml @ 20 mls/hr IV . Q24H [facility] Rx#:[id number] Other: Voiding Method Toilet Toilet # Voids 1 Weight 67.2 kg PHYSICAL EXAMINATION: HEENT: Head is atraumatic, normocephalic. Pupils equal, round. Neck is supple. There is no elevated jugular venous pressure. No carotid bruits auscultated. HEART EXAMINATION: Heart sounds regular, S1 and S2 with a systolic murmur. CHEST EXAMINATION: Lungs are clear to auscultation and precussion. No chest wall tenderness is noted on palpation or with deep breathing. LIC site within normal limits. ABDOMEN: Soft, nontender. Bowel sounds are heard. No organomegaly noted. EXTREMITIES: 2+ peripheral pulses with no evidence of peripheral edema and no calf tenderness noted. NEUROLOGIC patient is awake, alert and oriented x3. . Results 05/30/19 12:36 05/30/19 12:36 Cardiac Enzymes 05/30/19 05/30/19 Range/Units 12:36 12:36 AST 40 H (14-36) U/L Troponin I <0.012 (0.000-0.034) ng/mL Coagulation 05/30/19 Range/Units 12:36 PT 18.4 H (9.0-12.0) sec APTT 34.1 H (22.0-30.0) sec CBC 05/30/19 Range/Units 12:36 WBC 7.2 (3.8-10.6) k/uL RBC 5.01 (3.80-5.40) m/uL Hgb 14.8 (11.4-16.0) gm/dL Hct 44.3 (34.0-46.0) % Plt Count 198 (150-450) k/uL Comprehensive Metabolic Panel 05/30/19 Range/Units 12:36 Sodium 137 (137-145) mmol/L Potassium 4.9 (3.5-5.1) mmol/L Chloride 103 (98-107) mmol/L Carbon Dioxide 23 (22-30) mmol/L BUN 16 (7-17) mg/dL Creatinine 0.83 (0.52-1.04) mg/dL Glucose 96 (74-99) mg/dL Calcium 9.8 (8.4-10.2) mg/dL AST 40 H (14-36) U/L ALT 32 (9-52) U/L Alkaline Phosphatase 82 (38-126) U/L Total Protein 7.5 (6.3-8.2) g/dL Albumin 4.3 (3.5-5.0) g/dL Current Medications Generic Name Dose Route Start Last Admin Trade Name Freq PRN Reason Stop Dose Admin Acetaminophen 650 mg 05/30/19 14:56 05/31/19 06:07 Tylenol Tab PO 650 mg Q6HR PRN Administration Mild Pain or Fever > 100.5 Acetaminophen 500 mg 05/30/19 14:59 Tylenol Tab PO DAILY PRN Pain Alprazolam 0.25 mg 05/30/19 20:54 05/31/19 08:10 Xanax PO 0.25 mg BID PRN Administration Anxiety Atorvastatin Calcium 20 mg 05/30/19 21:00 05/30/19 20:16 Lipitor PO 20 mg HS [facility]I Administration Bupropion HCl 150 mg 05/31/19 09:00 05/31/19 08:05 Wellbutrin Xl PO 150 mg DAILY [facility] Administration Citalopram Hydrobromide 10 mg 05/31/19 09:00 05/31/19 08:07 Celexa PO Not Given DAILY [facility]I Sodium Chloride 1,000 mls @ 20 mls/hr 05/30/19 15:00 05/30/19 18:42 Saline 0.9% IV 20 mls/hr .Q24H [facility] Administration Levothyroxine Sodium 88 mcg 05/31/19 06:30 05/31/19 06:07 Synthroid PO 88 mcg 0630 R[facility]I Administration Naloxone HCl 0.2 mg 05/30/19 14:56 Narcan IV Q2M PRN Opioid Reversal Ondansetron HCl 4 mg 05/30/19 14:56 Zofran IVP Q8HR PRN Nausea And Vomiting Warfarin Sodium 5 mg 05/31/19 18:00 Coumadin PO [id number] R[facility]I Warfarin Sodium 7.5 mg 05/30/19 18:00 05/30/19 18:41 Coumadin PO 7.5 mg Fr@1800 RANDI Administration Intake and Output 05/30/19 05/31/19 05/31/19 22:59 06:59 14:59 Intake Total 100 Balance 100 Intake: Intake, IV Titration 100 Amount Sodium Chloride 0.9% 1, 100 000 ml @ 20 mls/hr IV . Q24H [facility] Rx#:[id number] Other: Voiding Method Toilet Toilet # Voids 1 Weight 67.2 kg 05/30/19 12:36 05/30/19 12:36 EKG Interpretations (text) Atrial paced rhythm with PACs Assessment and Plan Assessment: #1 questionable bradycardia with no evidence of bradycardia since admission #2 status post permanent pacemaker, appears to be functioning normally with limited interrogation showing normal sensing and lead impedances #3 paroxysmal atrial fibrillation, currently maintaining sinus rhythm, subtherapeutic INR on warfarin #4 hypertension #5 hyperlipidemia Plan: From cardiology's perspective, we'll obtain records from the office. We will have the pacemaker fully interrogated to assess capture. We will resume metoprolol. Give the patient extra warfarin tonight. She will have an INR next week. If the patient's pacemaker is normal functioning normally, from our standpoint patient may be discharged home today and follow-up as scheduled in the office with Dr. Vo. FACILITATOR note has been reviewed, I agree with a documented findings and plan of care. Patient was seen and examined.
[2019-05-31 09:35] LABS: Prothrombin Time 19.6 sec (9.0-12.0)
[2019-05-31] MEDS: METOPROLOL TARTRATE 50 MG TAB PO SCH ×3 (09:37→22:00)
[2019-05-31] MEDS: SODIUM CHLORIDE 0.9% 1,000 ML IV SCH (16:53)
[2019-05-31] MEDS ORDERED: WARFARIN 7.5 MG TAB PO ONE (18:00)
[2019-05-31] MEDS: ATORVASTATIN 20 MG TAB PO SCH (19:55)
[2019-05-31] MEDS: APIXABAN 2.5 MG TABLET PO SCH (19:55)
[2019-06-01] MEDS: LEVOTHYROXINE 88 MCG TAB PO SCH (05:46)
[2019-06-01] MEDS: ACETAMINOPHEN TAB 325 MG TAB PO PRN (08:19)
[2019-06-01] MEDS: ALPRAZolam 0.25 MG TAB PO PRN (08:19)
[2019-06-01] MEDS: METOPROLOL TARTRATE 50 MG TAB PO SCH (08:19)
[2019-06-01] MEDS: APIXABAN 2.5 MG TABLET PO SCH (08:19)
[2019-06-01] MEDS: buPROPion XL 150 MG TAB.ER.24H PO SCH (08:19)
[2019-06-01] MEDS: CITALOPRAM HYDROBROMIDE 10 MG TAB PO SCH (08:21)
[2019-06-01 09:06] VITALS: TEMP 97.5
--- NOTE | 2019-06-01 11:16 | PN ---
PROGRESS NOTE Ms. Ruiz is an 88-year-old female with a history of paroxysmal fibrillation, history of permanent pacemaker implantation, who presented with dizziness. She has had her device interrogated yesterday and that revealed a normal sensing and pacing with no evidence of pacemaker malfunction. She is back on her beta nasrin. We switched from Coumadin to Eliquis because of the recent subtherapeutic INR and the TIA. She continues to be on Eliquis 2.5 mg twice a day, Lipitor 20 mg daily, metoprolol tartrate 50 mg 3 times a day. PHYSICAL EXAMINATION: Blood pressure 129/70 with a heart rate in the 60s. LUNGS: Clear. HEART: Regular rate and rhythm S1, S2. No S3 with systolic murmur. No diastolic murmur. No rub. ABDOMEN: Soft and nontender. EXTREMITIES: No edema. IMPRESSION: 1. Paroxysmal atrial fibrillation, remains in sinus mechanism, anticoagulated. 2. Permanent pacemaker implantation. 3. Episode of dizziness with no evidence to suggest pacemaker malfunction. RECOMMENDATIONS: From the cardiac standpoint, she is stable. I would expect she should be able to be discharged home soon and follow up as an outpatient with Dr. Vo. MMLAKISHAL / ALEXA: [id number] /
[2019-06-01 12:08] VITALS: BP 136/74; PULSE 60
[2019-06-01] MEDS ORDERED: WARFARIN 5 MG TAB PO SCH (18:00)
--- NOTE | 2019-06-12 22:06 | P.PN ---
Subjective Progress Note Date: 05/31/19 Principal diagnosis: Dizziness Questionable bradycardia This is a very pleasant [address] Raul Avendaño. Patient's security expert is Dr. Alexander alves. Chronic stable medical conditions include hypertension, hyperlipidemia, hypothyroid, anxiety, depression, or strength r edness. Patient does have a permanent pacemaker. Patient for 3-4 weeks and noticed that she been dizzy off and on. Patient had a visiting nurse came out she found a heart rate down to 37. Patient's and has been feeling off balance. Patient is intubated. Pacemaker was interrogated in the ER. Admitted for cardiac evaluation. Patient has been on metoprolol 50 mg 3 times a day. Which is currently held. No chest pain no palpitation. 05/31/2019 Patient denied any complaints of dizziness today. Improving clinically. Telemetry showed no evidence of bradycardia. Patient was started back on metoprolol. Cardiology recommends starting on Eliquis. Prescription was sent to pharmacy. Coumadin is being held now. Patient is being continued on telemetry monitoring. Pacemaker interrogation showed no arrhythmias. Otherwise patient denied any complaints of generalized weakness or dizziness. No fever no chills. No nausea vomiting or abdominal pain. Continue to monitor for another 24 hours for any bradycardia. Patient was started back on metoprolol. Discussed with the patient and her daughter at bedside in detail. Current medications reviewed. Objective - Vital Signs Vital signs: Vital Signs Temp 97.7 F 05/31/19 15:46 Pulse 60 05/31/19 15:46 Resp 18 05/31/19 15:46 BP 131/80 05/31/19 15:46 Pulse Ox 92 L 05/31/19 15:46 Intake & Output 05/30/19 05/31/19 05/31/19 18:59 06:59 18:59 Intake Total 100 240 Balance 100 240 Weight 67.132 kg 67.2 kg Intake: Intake, IV Titration 100 Amount Sodium Chloride 0.9% 1, 100 000 ml @ 20 mls/hr IV . Q24H [facility] Rx#:[id number] Oral 240 Other: Voiding Method Toilet Toilet # Voids 1 1 - Exam .Physical examination: GENERAL: BMI 23.9, sitting up the edge of the bed, anxious.. EYES: Pupils equal. Conjunctiva normal. HEENT: External appearance of nose and ears normal, oral cavity grossly normal. NECK: JVD not raised; masses not palpable. HEART: First and second heart sounds are normal; no edema. LUNGS: Respiratory rate normal; clear to auscultation. ABDOMEN: Soft, nontender, liver spleen not palpable, no masses palpable. PSYCH: Alert and oriented x3; mood and affect slightly low l. NEUROLOGICAL: Cranial nerves grossly intact; no facial asymmetry, power and sensation grossly intact. LYMPHATICS: No lymph nodes palpable in the axilla and neck Musculoskeletal: Evidence of OA especially in the hands INVESTIGATIONS, reviewed in the clinical context: White count 7.2 hemoglobin 14.8 platelets 198 INR 1.9 potassium 4.9 crit 0.83 Troponin I is less than 0.012 EKG tracing personally reviewed by me-[email or web address] showed paced rhythm -Checks x-ray film personally reviewed by me-lung varma a - Labs CBC & Chem 7: 05/30/19 12:36 05/30/19 12:36 Labs: Abnormal Lab Results - Last 24 Hours (Table) 05/31/19 Range/Units 09:20 PT 19.6 H (9.0-12.0) sec INR 2.0 H (<1.2) Assessment and Plan Assessment: -Bradycardia on admission. Currently patient is not bradycardic. Started back on metoprolol.. Permanent pacemaker interrogation has been done in the ER. Showed no arrhythmia. -Paroxysmal atrial fibrillation, chronically on Coumadin and changed to Eliquis during this admission. -Coumadin monitoring -Hyperlipidemia -Essential hypertension -Hypothyroid -Depression and anxiety not otherwise specified -1 cm left upper lobe pulmonary nodule. To be followed as an outpatient Plan: Patient was started back on metoprolol.. Home medications resumed. Eliquis prescription was sent to pharmacy.. Cardiology has seen the patient.. Patient's TSH is normal. Care was discussed with the patient. Questions were answered Time with Patient: Greater than 30
--- NOTE | 2019-06-12 22:19 | P.DS ---
Providers Date of admission: 05/30/19 14:56 Expected date of discharge: 06/01/19 Attending physician: Goyo Holloway Consults: 05/30/19 14:57 Consult Physician Routine Consulting Provider: Ian Vo Consult Reason/Comments: bradycardia, pacer malfunction? Do you want consulting provider notified?: Yes Primary care physician: Raul Avendaño MD Hospital Course: Discharge diagnosis -Bradycardia on admission. Currently patient is not bradycardic. Started back on metoprolol.. Permanent pacemaker interrogation has been done in the ER. Showed no arrhythmia. -Paroxysmal atrial fibrillation, chronically on Coumadin and changed to Eliquis during this admission. -Coumadin monitoring -Hyperlipidemia -Essential hypertension -Hypothyroid -Depression and anxiety not otherwise specified -1 cm left upper lobe pulmonary nodule. To be followed as an outpatient Hospital course This is a very pleasant [address] Raul Avendaño. Patient's magazine keeper is Dr. Alexander alves. Chronic stable medical conditions include hypertension, hyperlipidemia, hypothyroid, anxiety, depression, or strength redness. Patient does have a permanent pacemaker. Patient for 3-4 weeks and noticed that she been dizzy off and on. Patient had a visiting nurse came out she found a heart rate down to 37. Patient's and has been feeling off balance. Patient is intubated. Pacemaker was interrogated in the ER. Admitted for cardiac evaluation. Patient has been on metoprolol 50 mg 3 times a day. Which is currently held. No chest pain no palpitation. 05/31/2019 Patient denied any complaints of dizziness today. Improving clinically. Telemetry showed no evidence of bradycardia. Patient was started back on metoprolol. Cardiology recommends starting on Eliquis. Prescription was sent to pharmacy. Coumadin is being held now. Patient is being continued on telemetry monitoring. Pacemaker interrogation showed no arrhythmias. Otherwise patient denied any complaints of generalized weakness or dizziness. No fever no chills. No nausea vomiting or abdominal pain. Continue to monitor for another 24 hours for any bradycardia. Patient was started back on metoprolol. Discussed with the patient and her daughter at bedside in detail. 06/01/2019 Patient does not have any bradycardia overnight. No complaints of chest pain or shortness of breath. No dizziness or lightheadedness. Heart rate is controlled. Patient was started on Eliquis. Patient was recommended to follow with cardiology in the clinic. No other acute overnight issues. Patient is being discharged home today. PHYSICAL EXAMINATION: Patient is lying in the bed comfortably, no acute distress, awake alert and oriented. Anxious.. HEENT: Normocephalic. Neck is supple. Pupils reactive. Nostrils clear. Oral cavity is moist. Ears reveal no drainage. Neck reveals no JVD, carotid bruits, or thyromegaly. CHEST EXAMINATION: Trachea is central. Symmetrical expansion. Lung varma clear to auscultation and percussion. CARDIAC: Normal S1, S2 with no gallops. No murmurs ABDOMEN: Soft. Bowel sounds normal. No organomegaly. No abdominal bruits. Extremities: reveal no edema. No clubbing or cyanosis Neurologically awake, alert, oriented x3 with well-coordinated movements. No focal deficits noted Skin: No rash or skin lesions. Psychiatric: Coperative. Nonsuicidal Musculoskeletal: No joint swelling or deformity. Normal range of motion. Discharge vitals reviewed. Patient Condition at Discharge: Fair Plan - Discharge Summary Discharge Rx Participant: Yes New Discharge Prescriptions: New Apixaban [Eliquis] 2.5 mg PO BID tablet Continue ALPRAZolam [Xanax] 0.25 mg PO BID PRN PRN Reason: Anxiety buPROPion XL [Wellbutrin XL] 150 mg PO DAILY Metoprolol Tartrate [Lopressor] 50 mg PO TID Levothyroxine Sodium [Synthroid] 88 mcg PO DAILY Atorvastatin [Lipitor] 20 mg PO HS #30 tab Citalopram Hydrobromide [Citalopram HBr] 10 mg PO DAILY Acetaminophen [Tylenol Extra Strength] 500 mg PO DAILY PRN PRN Reason: Pain Discontinued Warfarin [Coumadin] 5 mg PO SUMOTUWETHSA Warfarin [Coumadin] 7.5 mg PO FR Discharge Medication List ALPRAZolam [Xanax] 0.25 mg PO BID PRN 03/18/15 [History] Levothyroxine Sodium [Synthroid] 88 mcg PO DAILY 03/27/19 [History] Metoprolol Tartrate [Lopressor] 50 mg PO TID 03/27/19 [History] buPROPion XL [Wellbutrin XL] 150 mg PO DAILY 03/27/19 [History] Atorvastatin [Lipitor] 20 mg PO HS #30 tab 03/31/19 [Rx] Acetaminophen [Tylenol Extra Strength] 500 mg PO DAILY PRN 05/30/19 [History] Citalopram Hydrobromide [Citalopram HBr] 10 mg PO DAILY 05/30/19 [History] Apixaban [Eliquis] 2.5 mg PO BID tablet 06/01/19 [Rx] Follow up Appointment(s)/Referral(s): Raul Avendaño MD [Primary Care Provider] - 1-2 days (Please call and make appointment Sunday.) Ian Vo MD [STAFF PHYSICIAN] - 1 Week (Please call and make appointment Sunday) Patient Instructions/Handouts: Transient Ischemic Attack (DC), Bradycardia (DC), Safe Use of Anticoagulants (DC) Discharge Disposition: HOME SELF-CARE
== END 2019-06-01 12:45 | disposition home or self-care (01) ==
LOC: EC 12:07 → 3SCARD 14:56
PROVIDERS: ADMIT Hospitalist; ATTEND Hospitalist
DX: R00.1 Bradycardia, unspecified (principal); R53.81 Other malaise; I10 Essential (primary) hypertension; E78.5 Hyperlipidemia, unspecified; E03.9 Hypothyroidism, unspecified; I08.3 Combined rheumatic disorders of mitral, aortic and tricuspid valves; I27.20 Pulmonary hypertension, unspecified; Z95.0 Presence of cardiac pacemaker; Z86.73 Personal history of transient ischemic attack (TIA), and cerebral infarction without residual deficits; F41.9 Anxiety disorder, unspecified; E27.8 Other specified disorders of adrenal gland; F32.9 Major depressive disorder, single episode, unspecified; I48.0 Paroxysmal atrial fibrillation; I65.21 Occlusion and stenosis of right carotid artery; I49.5 Sick sinus syndrome; M19.90 Unspecified osteoarthritis, unspecified site; Z87.891 Personal history of nicotine dependence; R91.1 Solitary pulmonary nodule; Z79.01 Long term (current) use of anticoagulants; Z96.641 Presence of right artificial hip joint; Z96.653 Presence of artificial knee joint, bilateral; Z80.0 Family history of malignant neoplasm of digestive organs; Z79.890 Hormone replacement therapy; Z79.899 Other long term (current) drug therapy; Z91.040 Latex allergy status; Z91.018 Allergy to other foods
CPT/HCPCS: 99285; 36415; 93005; 80053; 83735; 84443; 84484; 85025; 85610 ×2; 85730; 71046; 71260; G0378 ×3; Q9967